=== PATIENT | male | born 1950 | race African-American/Black ===

== ENCOUNTER 2016-04-23 14:21 | Inpatient (IN) ==
[2016-04-23] MEDS ORDERED: 0.9 % Sodium Chloride 1,000 ML IVC ONE (14:27)
--- NOTE | 2016-04-23 14:29 | Emergency Department Note ---
Disposition Clinical Impression: Delirium due to general medical condition, Altered mental status, UTI (urinary tract infection), Renal insufficiency, Hyperkalemia, Anemia, Schizophrenia, Abnormal EKG, Cerebrovascular disease Disposition: Admitted As Inpatient [facility] - General Adult HPI - General Chief complaint: ED Altered Mental Status Stated complaint: r/o CVA Time Seen by Provider: 04/23/16 14:26 Source: patient, EMS Limitations: altered mental status - History of Present Illness HPI Narrative: 66-year-old male [place] in from the [place], there is concern for acute confusion. The patient's home provider reported the patient was acutely confused and he was taken to the [place] for evaluation. The patient was reportedly wandering around the facility, an alteration from his baseline mental status is reported. There is no history of syncope. No history of injury. 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 The patient is unable to give a clear history when asked directly, there is no history of chest pain shortness of breath abdominal pain vomiting or diarrhea. There is no history of rash or fever. No history of seizures fall or trauma. Essentially the patient has been confused and was sent in for further evaluation on the [place] facility. Onset (ago): Just [employer]ICE Pain Scale: 0 - Related Data Home Medications Medication Instructions Recorded Confirmed Acetaminophen [Tylenol] 650 mg PO TID PRN 02/05/16 02/05/16 Alendronate Sodium [Fosamax] 70 mg PO QWEEK 02/05/16 02/05/16 Amlodipine [Norvasc] 5 mg PO DAILY 02/05/16 02/05/16 Aspirin [Lo-Dose Aspirin EC] 81 mg PO DAILY 02/05/16 02/05/16 Atorvastatin [Lipitor] 20 mg PO HS 02/05/16 02/05/16 Benztropine [Cogentin] 1 mg PO BID 02/05/16 02/05/16 Calcium Carb, Citrate/Vit D3 2 tab PO BID 02/05/16 02/05/16 [Calcium + D3 ER Tablet] Cholecalciferol (D-3) [Vitamin D] 1,000 unit PO DAILY 02/05/16 02/05/16 Docusate [Colace] 100 mg PO TID 02/05/16 02/05/16 Haloperidol 20 mg PO TID 02/05/16 02/05/16 Haloperidol Decanoate [Haldol] 50 mg IM QMONTH 02/05/16 02/05/16 Ipratropium/Albuterol Neb [Duoneb] 3 ml IH Q6HR 02/05/16 02/05/16 Latanoprost [Xalatan] 1 drop RIGHT EYE HS 02/05/16 02/05/16 [place] Carbonate 300 mg PO DAILY 02/05/16 02/05/16 Loratadine [Allergy Relief] 10 mg PO DAILY 02/05/16 02/05/16 Magnesium Hydroxide [Milk of 60 ml PO DAILY PRN 02/05/16 02/05/16 Magnesia] Metoprolol XL (24 HR) Succ [Toprol 50 mg PO BID 02/05/16 02/05/16 XL] Omeprazole [PriLOSEC] 20 mg PO BIDAC 02/05/16 02/05/16 Sertraline [Zoloft] 150 mg PO DAILY 02/05/16 02/05/16 Terazosin [Hytrin] 5 mg PO HS 02/05/16 02/05/16 TraZODone 50 mg PO TID 02/05/16 02/05/16 Allergies Allergy/AdvReac Type Severity Reaction Status Date / Time No Known Allergies Allergy Verified 02/05/16 14:27 Limitations: ROS unobtainable due to patients medical condition Past Medical History - Past Medical History Medical history: Reports: GERD, glaucoma, hypertension, osteoporosis, other Surgical history: Reports: cholecystectomy, other (tonsillectomy as a child) Psychiatric history: Reports: bipolar, schizophrenia - Social History Smoking Status: Current every day smoker Smokeless Tobacco Status: No Alcohol use: Reports: none Drug use: Reports: none Physical Exam - General Limitations: altered mental status General appearance: alert, in no apparent distress - Head Head exam: atraumatic, normocephalic, normal inspection - Eye Eye exam: Present: other (Left eye chronic defects right eye unremarkable). Absent: normal appearance, PERRL, EOMI - ENT ENT exam: normal exam, normal oropharynx, mucous membranes moist, normal external ear exam - Neck Neck exam: Present: normal inspection, full ROM, trachea midline. Absent: tenderness - Chest Chest inspection: Present: normal inspection, symmetric chest wall rise. Absent : tenderness - Respiratory Respiratory exam: Present: normal lung sounds bilaterally. Absent: respiratory distress, wheezes, prolonged expiratory phase - Cardiovascular Cardiovascular exam: Present: regular rate, normal rhythm, normal heart sounds - Abdominal Exam Abdominal exam: Present: soft, Non-Tender. Absent: tenderness, distention, guarding, rebound, rigidity, trauma, pulsatile mass - Extremities Exam Extremities exam: Present: normal inspection, full ROM, normal capillary refill. Absent: tenderness, pedal edema, joint swelling, calf tenderness - Expanded Lower Extremity Exam Hip/Pelvis exam: Present: full ROM. Absent: tenderness Upper leg exam: Present: full ROM. Absent: tenderness Knee exam: Present: full ROM. Absent: tenderness Lower leg exam: Present: full ROM. Absent: tenderness, Homans' sign Ankle exam: Present: full ROM. Absent: tenderness Neurovascular/Tendon exam: Absent: motor deficit, sensory deficit, tendon deficit - Back Exam Back exam: Present: normal inspection, full ROM. Absent: tenderness, CVA tenderness (R), CVA tenderness (L), vertebral tenderness - Neurological Exam Neurological exam: Present: alert, oriented X3, CN II-XII intact. Absent: motor sensory deficit - Skin Skin exam: Present: warm, dry, intact, normal color. Absent: rash, cyanosis, diaphoresis, erythema, pallor, mottled Course Vital Signs Temperature 98.3 F 04/23/16 14:22 Pulse Rate 60 04/23/16 14:22 Respiratory Rate 18 04/23/16 14:22 Blood Pressure 132/77 04/23/16 14:22 O2 Sat by Pulse Oximetry 93 L 04/23/16 14:22 Temperature 98.3 F 04/23/16 14:22 Pulse Rate 64 04/23/16 16:15 Respiratory Rate 16 04/23/16 16:15 Blood Pressure 147/80 04/23/16 16:15 O2 Sat by Pulse Oximetry 95 04/23/16 16:15 Oxygen Delivery Oxygen Delivery Room Air Medical Decision Making - MDM Narrative Medical decision making narrative: The patient apparently has a UTI, he is confused and apparently has mental status changes from baseline, Rocephin was given IV. The patient does not appear to be septic. Based on his acute mental status changes in association with infection, I thought it would be appropriate to consult the hospitalist for admission. The patient is currently stable. - Lab Data Lab results reviewed: Yes I reviewed the patient's lab results. Result diagrams: 04/23/16 14:55 04/23/16 14:55 Lab Results 04/23/16 04/23/16 04/23/16 Range/Units 14:30 14:55 14:55 WBC 4.5 (4.3-11.1) K/mcL RBC 3.92 L (4.19-5.50) M/mcL Hgb 11.4 L (12.9-16.9) g/dL Hct 35.2 L (37.5-50.1) % MCV 89.8 (83.0-100.0) fL MCH 29.1 (28.0-33.3) pg MCHC 32.4 (31.6-35.5) g/dL RDW 14.6 H (11.5-14.5) % Plt Count 220 (140-400) K/mcL MPV 10.0 (9.4-12.4) fL Immature Gran % 0.2 (0-4) % Seg Neutrophils % 59.4 % Lymphocytes % 25.3 % Monocytes % 10.0 % Eosinophils % 4.7 % Basophils % 0.4 % Neutrophils # 2.7 (1.6-8.9) K/mcL Lymphocytes # 1.1 (0.6-4.6) K/mcL Monocytes # 0.5 (0.0-1.3) K/mcL Eosinophils # 0.2 (0.0-0.6) K/mcL Basophils # 0.0 (0.0-0.2) K/mcL PT 11.1 (9.4-12.1) Seconds INR 1.0 APTT 26.8 (26.0-36.0) Seconds Sodium (136-145) mEq/L Potassium (3.5-4.5) mEq/L Chloride (98-109) mEq/L Carbon Dioxide (19-29) mEq/L BUN (8-26) mg/dL Creatinine (0.72-1.25) mg/dL Est GFR ( Amer) (> 60) Est GFR (Non-Af Amer) (> 60) BUN/Creatinine Ratio (6-26) Glucose (70-99) mg/dL POC Glucose 111 H (58-89) Calculated Osmolality (280-300) Lactic Acid (0.5-2.2) mmol/L Calcium (8.6-10.8) mg/dL Total Bilirubin (0.2-1.2) mg/dL Direct Bilirubin (0.0-0.5) mg/dL Indirect Bilirubin (0.0-1.2) mg/dL AST (5-34) Units/L ALT (0-55) Units/L Alkaline Phosphatase (38-126) Units/L Ammonia (18-72) mcmol/L Troponin I (0-0.03) ng/mL C-Reactive Protein (Less than 5) mg/L Serum Total Protein (6.0-8.3) g/dL Albumin (3.5-5.0) g/dL Globulin (2.4-3.5) g/dL Albumin/Globulin Ratio (1.1-2.2) TSH (0.350-4.840) mcIU/mL Urine Color (Yellow) Urine Clarity (Clear) Urine pH (5.0-8.0) pH Units Ur Specific [place] (1.010-1.025) Urine Protein (Neg-Trace) mg/dL Urine Glucose (UA) (Normal) mg/dL Urine Ketones (Negative) mg/dL Urine Blood (Negative) Urine Nitrite (Negative) Urine Bilirubin (Negative) Urine Urobilinogen (Normal) mg/dL Ur Leukocyte Esterase (Negative) Urine Microscopic RBC (0-3) per hpf Urine Microscopic WBC (0-3) per hpf Ur Squamous Epith Cells (None-Few) per lpf Urine Bacteria (None-Few) per hpf Hyaline Casts (None-Few) per lpf Ur Culture Indicated? (NO) Urine Opiates Screen (Yuuwaf=768) ng/mL Ur Barbiturates Screen (Eeaxfk=899) ng/mL Ur Phencyclidine Scrn (Cutoff=25) ng/mL Ur Amphetamines Screen (Mxgojc=5808) ng/mL U Benzodiazepines Scrn (Mczzmb=250) ng/mL Urine Cocaine Screen (Cutoff= 300) ng/mL U Marijuana (THC) Screen (Cutoff = 50) ng/mL Ethyl Alcohol (0-10) mg/dL 04/23/16 04/23/16 04/23/16 Range/Units 14:55 14:55 14:55 WBC (4.3-11.1) K/mcL RBC (4.19-5.50) M/mcL Hgb (12.9-16.9) g/dL Hct (37.5-50.1) % MCV (83.0-100.0) fL MCH (28.0-33.3) pg MCHC (31.6-35.5) g/dL RDW (11.5-14.5) % Plt Count (140-400) K/mcL MPV (9.4-12.4) fL Immature Gran % (0-4) % Seg Neutrophils % % Lymphocytes % % Monocytes % % Eosinophils % % Basophils % % Neutrophils # (1.6-8.9) K/mcL Lymphocytes # (0.6-4.6) K/mcL Monocytes # (0.0-1.3) K/mcL Eosinophils # (0.0-0.6) K/mcL Basophils # (0.0-0.2) K/mcL PT (9.4-12.1) Seconds INR APTT (26.0-36.0) Seconds Sodium 141 (136-145) mEq/L Potassium 4.7 H (3.5-4.5) mEq/L Chloride 111 H (98-109) mEq/L Carbon Dioxide 23 (19-29) mEq/L BUN 26 (8-26) mg/dL Creatinine 1.37 H (0.72-1.25) mg/dL Est GFR ( Amer) > 60 (> 60) Est GFR (Non-Af Amer) 52 L (> 60) BUN/Creatinine Ratio 19 (6-26) Glucose 98 (70-99) mg/dL POC Glucose (58-89) Calculated Osmolality 297 (280-300) Lactic Acid (0.5-2.2) mmol/L Calcium 9.9 (8.6-10.8) mg/dL Total Bilirubin 0.3 (0.2-1.2) mg/dL Direct Bilirubin 0.1 (0.0-0.5) mg/dL Indirect Bilirubin 0.2 (0.0-1.2) mg/dL AST 16 (5-34) Units/L ALT 22 (0-55) Units/L Alkaline Phosphatase 109 (38-126) Units/L Ammonia 12 L (18-72) mcmol/L Troponin I 0.01 (0-0.03) ng/mL C-Reactive Protein (Less than 5) mg/L Serum Total Protein 7.3 (6.0-8.3) g/dL Albumin 3.5 (3.5-5.0) g/dL Globulin 3.8 H (2.4-3.5) g/dL Albumin/Globulin Ratio 0.9 L (1.1-2.2) TSH 0.702 (0.350-4.840) mcIU/mL Urine Color (Yellow) Urine Clarity (Clear) Urine pH (5.0-8.0) pH Units Ur Specific [place] (1.010-1.025) Urine Protein (Neg-Trace) mg/dL Urine Glucose (UA) (Normal) mg/dL Urine Ketones (Negative) mg/dL Urine Blood (Negative) Urine Nitrite (Negative) Urine Bilirubin (Negative) Urine Urobilinogen (Normal) mg/dL Ur Leukocyte Esterase (Negative) Urine Microscopic RBC (0-3) per hpf Urine Microscopic WBC (0-3) per hpf Ur Squamous Epith Cells (None-Few) per lpf Urine Bacteria (None-Few) per hpf Hyaline Casts (None-Few) per lpf Ur Culture Indicated? (NO) Urine Opiates Screen (Lynjeg=631) ng/mL Ur Barbiturates Screen (Bhyvyp=579) ng/mL Ur Phencyclidine Scrn (Cutoff=25) ng/mL Ur Amphetamines Screen (Uvbgdy=7379) ng/mL U Benzodiazepines Scrn (Mjxjlj=921) ng/mL Urine Cocaine Screen (Cutoff= 300) ng/mL U Marijuana (THC) Screen (Cutoff = 50) ng/mL Ethyl Alcohol < 10 (0-10) mg/dL 04/23/16 04/23/16 04/23/16 Range/Units 14:55 14:55 15:35 WBC (4.3-11.1) K/mcL RBC (4.19-5.50) M/mcL Hgb (12.9-16.9) g/dL Hct (37.5-50.1) % MCV (83.0-100.0) fL MCH (28.0-33.3) pg MCHC (31.6-35.5) g/dL RDW (11.5-14.5) % Plt Count (140-400) K/mcL MPV (9.4-12.4) fL Immature Gran % (0-4) % Seg Neutrophils % % Lymphocytes % % Monocytes % % Eosinophils % % Basophils % % Neutrophils # (1.6-8.9) K/mcL Lymphocytes # (0.6-4.6) K/mcL Monocytes # (0.0-1.3) K/mcL Eosinophils # (0.0-0.6) K/mcL Basophils # (0.0-0.2) K/mcL PT (9.4-12.1) Seconds INR APTT (26.0-36.0) Seconds Sodium (136-145) mEq/L Potassium (3.5-4.5) mEq/L Chloride (98-109) mEq/L Carbon Dioxide (19-29) mEq/L BUN (8-26) mg/dL Creatinine (0.72-1.25) mg/dL Est GFR ( Amer) (> 60) Est GFR (Non-Af Amer) (> 60) BUN/Creatinine Ratio (6-26) Glucose (70-99) mg/dL POC Glucose (58-89) Calculated Osmolality (280-300) Lactic Acid 0.6 (0.5-2.2) mmol/L Calcium (8.6-10.8) mg/dL Total Bilirubin (0.2-1.2) mg/dL Direct Bilirubin (0.0-0.5) mg/dL Indirect Bilirubin (0.0-1.2) mg/dL AST (5-34) Units/L ALT (0-55) Units/L Alkaline Phosphatase (38-126) Units/L Ammonia (18-72) mcmol/L Troponin I (0-0.03) ng/mL C-Reactive Protein 11 H (Less than 5) mg/L Serum Total Protein (6.0-8.3) g/dL Albumin (3.5-5.0) g/dL Globulin (2.4-3.5) g/dL Albumin/Globulin Ratio (1.1-2.2) TSH (0.350-4.840) mcIU/mL Urine Color Yellow (Yellow) Urine Clarity Cloudy A (Clear) Urine pH 6.0 (5.0-8.0) pH Units Ur Specific [place] 1.013 (1.010-1.025) Urine Protein 30 H (Neg-Trace) mg/dL Urine Glucose (UA) Normal (Normal) mg/dL Urine Ketones Negative (Negative) mg/dL Urine Blood Negative (Negative) Urine Nitrite Negative (Negative) Urine Bilirubin Negative (Negative) Urine Urobilinogen Normal (Normal) mg/dL Ur Leukocyte Esterase Large H (Negative) Urine Microscopic RBC 0-3 (0-3) per hpf Urine Microscopic WBC 50-100 H (0-3) per hpf Ur Squamous Epith Cells Few (None-Few) per lpf Urine Bacteria Moderate H (None-Few) per hpf Hyaline Casts None Seen (None-Few) per lpf Ur Culture Indicated? YES A (NO) Urine Opiates Screen (Oizbzn=056) ng/mL Ur Barbiturates Screen (Jkjxqy=044) ng/mL Ur Phencyclidine Scrn (Cutoff=25) ng/mL Ur Amphetamines Screen (Wjekkq=3355) ng/mL U Benzodiazepines Scrn (Kuftxu=821) ng/mL Urine Cocaine Screen (Cutoff= 300) ng/mL U Marijuana (THC) Screen (Cutoff = 50) ng/mL Ethyl Alcohol (0-10) mg/dL 04/23/16 Range/Units 15:35 WBC (4.3-11.1) K/mcL RBC (4.19-5.50) M/mcL Hgb (12.9-16.9) g/dL Hct (37.5-50.1) % MCV (83.0-100.0) fL MCH (28.0-33.3) pg MCHC (31.6-35.5) g/dL RDW (11.5-14.5) % Plt Count (140-400) K/mcL MPV (9.4-12.4) fL Immature Gran % (0-4) % Seg Neutrophils % % Lymphocytes % % Monocytes % % Eosinophils % % Basophils % % Neutrophils # (1.6-8.9) K/mcL Lymphocytes # (0.6-4.6) K/mcL Monocytes # (0.0-1.3) K/mcL Eosinophils # (0.0-0.6) K/mcL Basophils # (0.0-0.2) K/mcL PT (9.4-12.1) Seconds INR APTT (26.0-36.0) Seconds Sodium (136-145) mEq/L Potassium (3.5-4.5) mEq/L Chloride (98-109) mEq/L Carbon Dioxide (19-29) mEq/L BUN (8-26) mg/dL Creatinine (0.72-1.25) mg/dL Est GFR ( Amer) (> 60) Est GFR (Non-Af Amer) (> 60) BUN/Creatinine Ratio (6-26) Glucose (70-99) mg/dL POC Glucose (58-89) Calculated Osmolality (280-300) Lactic Acid (0.5-2.2) mmol/L Calcium (8.6-10.8) mg/dL Total Bilirubin (0.2-1.2) mg/dL Direct Bilirubin (0.0-0.5) mg/dL Indirect Bilirubin (0.0-1.2) mg/dL AST (5-34) Units/L ALT (0-55) Units/L Alkaline Phosphatase (38-126) Units/L Ammonia (18-72) mcmol/L Troponin I (0-0.03) ng/mL C-Reactive Protein (Less than 5) mg/L Serum Total Protein (6.0-8.3) g/dL Albumin (3.5-5.0) g/dL Globulin (2.4-3.5) g/dL Albumin/Globulin Ratio (1.1-2.2) TSH (0.350-4.840) mcIU/mL Urine Color (Yellow) Urine Clarity (Clear) Urine pH (5.0-8.0) pH Units Ur Specific [place] (1.010-1.025) Urine Protein (Neg-Trace) mg/dL Urine Glucose (UA) (Normal) mg/dL Urine Ketones (Negative) mg/dL Urine Blood (Negative) Urine Nitrite (Negative) Urine Bilirubin (Negative) Urine Urobilinogen (Normal) mg/dL Ur Leukocyte Esterase (Negative) Urine Microscopic RBC (0-3) per hpf Urine Microscopic WBC (0-3) per hpf Ur Squamous Epith Cells (None-Few) per lpf Urine Bacteria (None-Few) per hpf Hyaline Casts (None-Few) per lpf Ur Culture Indicated? (NO) Urine Opiates Screen Negative (Ijbgtr=390) ng/mL Ur Barbiturates Screen Negative (Jzddxd=712) ng/mL Ur Phencyclidine Scrn Negative (Cutoff=25) ng/mL Ur Amphetamines Screen Negative (Rtjznx=8291) ng/mL U Benzodiazepines Scrn Negative (Rpbyay=116) ng/mL Urine Cocaine Screen Negative (Cutoff= 300) ng/mL U Marijuana (THC) Screen Negative (Cutoff = 50) ng/mL Ethyl Alcohol (0-10) mg/dL - Radiology Data Radiology results reviewed: Yes I reviewed the patient's radiology results.
[2016-04-23 15:04] LABS: Basophils % 0.4 %; Eosinophils # 0.2 K/mcL (0.0-0.6); Eosinophils % 4.7 %; Hematocrit 35.2 % (37.5-50.1); Hemoglobin 11.4 g/dL (12.9-16.9); Immature Granulocytes % 0.2 % (0-4); Lymphocytes # 1.1 K/mcL (0.6-4.6); Lymphocytes % 25.3 %; Mean Corpuscular HGB Conc 32.4 g/dL (31.6-35.5); Mean Corpuscular Hemoglobin 29.1 pg (28.0-33.3); Mean Corpuscular Volume 89.8 fL (83.0-100.0); Monocytes # 0.5 K/mcL (0.0-1.3); Neutrophils # 2.7 K/mcL (1.6-8.9); Platelet Count 220 K/mcL (140-400); Red Blood Count 3.92 M/mcL (4.19-5.50); Red Cell Distribution Width 14.6 % (11.5-14.5); Segmented Neutrophils % 59.4 %
[2016-04-23 15:10] LABS: Prothrombin Time 11.1 Seconds (9.4-12.1)
[2016-04-23 15:13] LABS: Activated Partial Thrombo Time 26.8 Seconds (26.0-36.0)
[2016-04-23 15:21] LABS: Alanine Aminotransferase 22 Units/L (0-55); Albumin 3.5 g/dL (3.5-5.0); Albumin/Globulin Ratio 0.9 (1.1-2.2); Alkaline Phosphatase 109 Units/L (38-126); Aspartate Amino Transferase 16 Units/L (5-34); BUN/Creatinine Ratio 19 (6-26); Bilirubin,Direct 0.1 mg/dL (0.0-0.5); Bilirubin,Indirect 0.2 mg/dL (0.0-1.2); Bilirubin,Total 0.3 mg/dL (0.2-1.2); Blood Urea Nitrogen 26 mg/dL (8-26); Calcium 9.9 mg/dL (8.6-10.8); Carbon Dioxide 23 mEq/L (19-29); Chloride 111 mEq/L (98-109); Ethanol < 10 mg/dL (0-10); Globulin 3.8 g/dL (2.4-3.5); Glucose 98 mg/dL (70-99); Osmolality,Calculated 297 (280-300); Potassium 4.7 mEq/L (3.5-4.5); Sodium 141 mEq/L (136-145); Total Protein 7.3 g/dL (6.0-8.3); eGFR For African Americans > 60 (> 60); eGFR For Non-African Americans 52 (> 60)
[2016-04-23 15:41] LABS: Thyroid Stimulating Hormone 0.702 mcIU/mL (0.350-4.840)
[2016-04-23 15:42] LABS: Bilirubin,Urine Negative (Negative); Blood,Urine Negative (Negative); Clarity,Urine Cloudy (Clear); Color,Urine Yellow (Yellow); Glucose,Urine (UA) Normal (Normal); Ketones,Urine Negative (Negative); Leukocyte Esterase,Urine Large (Negative); Nitrite,Urine Negative (Negative); Protein,Urine 30 mg/dL (Neg-Trace); Specific Gravity,Urine 1.013 (1.010-1.025); Urobilinogen,Urine Normal (Normal)
[2016-04-23 15:45] LABS: Bacteria,Urine Moderate per hpf (None-Few); Hyaline Casts,Urine None Seen per lpf (None-Few); RBC,Urine 0-3 per hpf (0-3); Squamous Epithelial Cell,Urine Few per lpf (None-Few); WBC,Urine 50-100 per hpf (0-3)
[2016-04-23 15:47] LABS: Amphetamine Screen,Urine Negative ng/mL (Cutoff=1000); Barbiturate Screen,Urine Negative ng/mL (Cutoff=200); Benzodiazepines Screen,Urine Negative ng/mL (Cutoff=200); Cannabinoid Screen,Urine Negative ng/mL (Cutoff = 50); Cocaine Screen,Urine Negative ng/mL (Cutoff= 300); Opiate Screen,Urine Negative ng/mL (Cutoff=300); Phencyclidine Screen,Urine Negative ng/mL (Cutoff=25)
[2016-04-24] MEDS ORDERED: NON-FORMULARY MEDICATION 1 EACH EACH (Ipratropium/Albuterol Sulfate [Combivent Respimat In IH PRN (02:21)
[2016-04-24] MEDS ORDERED: MOM Conc 10 ML UD.LIQ PO PRN (02:21)
[2016-04-24] MEDS ORDERED: Ondansetron 4 MG/2 ML VIAL IVP PRN (02:36)
[2016-04-24] MEDS ORDERED: Naloxone 0.4 MG/ML INJ IVP PRN (02:36)
[2016-04-24] MEDS ORDERED: Acetaminophen 325 MG TABLET PO PRN (02:36)
[2016-04-24] MEDS ORDERED: Ipratropium 1 PUFF INHALER IH PRN (02:38)
--- NOTE | 2016-04-24 02:42 | Internal Med History&Physical ---
Date of Encounter: 04/24/16 Time of Encounter: 02:00 Assessment and Plan (1) Altered mental status Current visit: Yes Status: Acute Etiology unclear at this time. Patient's UDS was negative. Urinalysis revealed UTI, will treat with Ceftriaxone. Will likely need to obtain more history from patient's family or [place] [facility] staff regarding his altered mental status. Consider consult to psychiatry later if necessary. Qualifiers: Altered mental status type: unspecified Qualified Code(s): R41.82 - Altered mental status, unspecified (2) Schizophrenia Current visit: Yes Status: Chronic Continue home meds: Haloperidol [place] held at this time. Will check lithium levels with morning labs, then resume if indicated. Qualifiers: Schizophrenia type: undifferentiated schizophrenia Qualified Code(s): F20.3 - Undifferentiated schizophrenia (3) REUBEN (acute kidney injury) Current visit: Yes Status: Acute Cr measured at 1.37. 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, bilateral, mild stage (6) BPH (benign prostatic hyperplasia) Current visit: No Status: Chronic Continue home med Terazosin Qualifiers: Prostatic enlargement morphology: nodular Lower urinary tract symptom presence: symptoms present Qualified Code(s): N40.1 - Benign prostatic hyperplasia with lower urinary tract symptoms (7) GERD (gastroesophageal reflux disease) Current visit: No Status: Chronic Continue Home med Prilosec Qualifiers: Esophagitis presence: without esophagitis Qualified Code(s): K21.9 - Gastro -esophageal reflux disease without esophagitis (8) UTI (urinary tract infection) Current visit: Yes Status: Acute urinalysis showed presence of bacteria. Urine culture pending. Ceftriaxone. Change antibiotic if indicated after urine culture sensitivity results. Qualifiers: Urinary tract infection type: site unspecified Hematuria presence: without hematuria Qualified Code(s): N39.0 - Urinary tract infection, site not specified (9) DVT prophylaxis Current visit: Yes Status: Acute Heparin Sq Q8HR Internal Medicine - H&P: HPI Chief complaint: altered mental status Admitted From: Emergency Dept Plans for Post Hospital Care: Transfer Other ([facility] [facility]) History of present illness: Mr. Rosales is a 66 year old male with PMHx of Schizophrenia, HTN, GERD, blindness in left eye, BPH, Schizophrenia, iron deficiency anemia, glaucoma. He came to the ED from a [place] [facility]. Per nursing stafff, patient is a very poor historian. He was asleep upon examination. After being aroused, he would fall back asleep upon further questioning. Per records from [facility], patient had a change in behavior between 8:30am-12pm on 04/23/16. Of note, patient had recently lost a roommate on March 18, and patient had this roommate for about 25 years. At noon on 04/23/16, before breakfast, patient standing at the bottom of the staircase confused with shuffling gait. During lunch he had to be hand fed by staff members because he couldn't get food into his mouth due to jerking and twitching of his hands. [facility] was confused [facility] No history could be obtained from the patient. Past Med Surg Social Fam HX - Past Medical History Medical history: GERD, glaucoma, hypertension, osteoporosis, other Psychiatric history: bipolar, schizophrenia - Past Surgical History Surgical History: cholecystectomy, other - Social History Smoking Status: Current every day smoker Smokeless Tobacco Status: No Alcohol use: none Drug use: none Internal Medicine - H&P: Meds Acetaminophen [Tylenol] 650 mg PO TID PRN 02/05/16 [History] Alendronate Sodium [Fosamax] 70 mg PO QWEEK 02/05/16 [History] Amlodipine [Norvasc] 5 mg PO DAILY 02/05/16 [History] Aspirin [Lo-Dose Aspirin EC] 81 mg PO DAILY 02/05/16 [History] Atorvastatin [Lipitor] 20 mg PO HS 02/05/16 [History] Benztropine [Cogentin] 1 mg PO BID 02/05/16 [History] Calcium Carb, Citrate/Vit D3 [Calcium + D3 ER Tablet] 2 tab PO BID 02/05/16 [ History] Docusate [Colace] 100 mg PO TID 02/05/16 [History] Haloperidol 20 mg PO TID 02/05/16 [History] Haloperidol Decanoate [Haldol] 50 mg IM QMONTH 02/05/16 [History] Ipratropium/Albuterol Neb [Duoneb] 3 ml IH Q6HR 02/05/16 [History] Latanoprost [Xalatan] 1 drop RIGHT EYE HS 02/05/16 [History] [place] Carbonate 300 mg PO DAILY 02/05/16 [History] Magnesium Hydroxide [Milk of Magnesia] 60 ml PO DAILY PRN 02/05/16 [History] Metoprolol XL (24 HR) Succ [Toprol XL] 50 mg PO BID 02/05/16 [History] Omeprazole [PriLOSEC] 20 mg PO BIDAC 02/05/16 [History] Sertraline [Zoloft] 150 mg PO DAILY 02/05/16 [History] Terazosin [Hytrin] 5 mg PO HS 02/05/16 [History] TraZODone 50 mg PO TID 02/05/16 [History] Ipratropium/Albuterol Sulfate [Combivent Respimat Inhal [place]] 1 puff IH Q6H PRN 04/23/16 [History] Allergies No Known Allergies Allergy (Verified 02/05/16 14:27) ROS unobtainable: due to mental status All Systems PM: A 10-system review of systems was performed and is negative for pertinent findings except as documented above in the HPI. - Constitutional Vitals: Temp Pulse Resp BP Pulse Ox 98.1 F 69 18 132/77 95 04/23/16 23:57 04/23/16 23:57 04/23/16 23:57 04/23/16 23:57 04/23/16 23:57 Exam: patient was asleep and drowsy. He would wake up upon arousal, but would immediately fall back asleep without answering questions. - Head Head exam: Present: atraumatic, normal inspection, normocephalic - Respiratory Respiratory exam: Present: CTAB - Cardiovascular Cardiovascular exam: Present: RRR - Extremities Exam Extremities exam: Absent: cyanotic, pedal edema - Neurological Exam Additional comments: unable to do neuro exam, patient was asleep. - Skin Skin exam: Absent: abrasion, cyanosis, diaphoretic Internal Med - H&P Results - Labs CBC & Chem 7: 04/24/16 04:26 04/24/16 04:26
[2016-04-24] MEDS: Ipratropium/Albuterol Neb 3 ML IH SCH ×4 (03:58→22:25)
[2016-04-24 04:43] LABS: Basophils % 0.8 %; Eosinophils # 0.2 K/mcL (0.0-0.6); Eosinophils % 4.7 %; Hemoglobin 10.6 g/dL (12.9-16.9); Immature Granulocytes % 0.2 % (0-4); Lymphocytes # 1.6 K/mcL (0.6-4.6); Lymphocytes % 31.6 %; Mean Corpuscular HGB Conc 32.1 g/dL (31.6-35.5); Mean Corpuscular Hemoglobin 28.5 pg (28.0-33.3); Mean Corpuscular Volume 88.7 fL (83.0-100.0); Mean Platelet Volume 10.6 fL (9.4-12.4); Monocytes # 0.4 K/mcL (0.0-1.3); Monocytes % 7.5 %; Neutrophils # 2.7 K/mcL (1.6-8.9); Platelet Count 223 K/mcL (140-400); Red Blood Count 3.72 M/mcL (4.19-5.50); Red Cell Distribution Width 14.5 % (11.5-14.5); Segmented Neutrophils % 55.2 %
[2016-04-24 05:16] LABS: BUN/Creatinine Ratio 18 (6-26); Blood Urea Nitrogen 24 mg/dL (8-26); Calcium 9.4 mg/dL (8.6-10.8); Carbon Dioxide 21 mEq/L (19-29); Chloride 113 mEq/L (98-109); Glucose 127 mg/dL (70-99); Osmolality,Calculated 298 (280-300); Potassium 4.1 mEq/L (3.5-4.5); Sodium 141 mEq/L (136-145); eGFR For African Americans > 60 (> 60); eGFR For Non-African Americans 55 (> 60)
[2016-04-24] MEDS: 0.9 % Sodium Chloride 1,000 ML IVC SCH ×2 (06:10→21:47)
[2016-04-24] MEDS: *HR* Heparin 5,000 UNIT/ML VIAL SQ SCH ×3 (06:24→22:01)
[2016-04-24] MEDS ORDERED: Sulfamethoxazole/Trimeth DS 1 EACH TABLET PO SCH (09:00)
[2016-04-24] MEDS: Aspirin Enteric Coated 81 MG Tablet PO SCH (10:55)
[2016-04-24] MEDS: traZODone 50 MG TABLET PO SCH ×3 (10:55→21:57)
[2016-04-24] MEDS: Metoprolol XL (24 HR) Succ 50 MG TAB.ER.24H PO SCH ×2 (10:55→21:59)
[2016-04-24] MEDS: amLODIPine 5 MG TABLET PO SCH (10:55)
[2016-04-24] MEDS: Calcium + D3 PO SCH ×2 (10:56→22:01)
--- NOTE | 2016-04-24 15:43 | Internal Med Progress Note ---
Date of Encounter: 04/24/16 Time of Encounter: 15:41 - Assessment and plan (1) REUBEN (acute kidney injury) Current Visit: Yes Status: Acute Assessment and plan: will continue to monitor. GFR>60 at this time avoid nephrotoxins (2) Altered mental status Current Visit: Yes Status: Acute Assessment and plan: appears to be at baseline. may be 2/2 UTI when he [resented yesterday with confusion, will follow urine cx. Head CT is negative for any hematoma or infarct. Qualifiers: Altered mental status type: somnolence Qualified Code(s): R40.0 - Somnolence (3) UTI (urinary tract infection) Current Visit: Yes Status: Acute Assessment and plan: zhane continue IV ceftriaxone for now, no leucocytosis or fever. follow urine cx results. Qualifiers: Urinary tract infection type: site unspecified Hematuria presence: without hematuria Qualified Code(s): N39.0 - Urinary tract infection, site not specified (4) Schizophrenia Current Visit: Yes Status: Chronic Assessment and plan: lithium was held yesterday, levels are low, will restart back. Qualifiers: Schizophrenia type: undifferentiated schizophrenia Qualified Code(s): F20.3 - Undifferentiated schizophrenia - Time Spent With Patient 25 - 35 minutes - Subjective Interval history: seen at the bedside, says that his left arm feels somewhat numb, otherwise denies any complaints. Does not sound confused at the time of my assessment. Denies any other complaints. - Constitutional Vitals: Temp Pulse Resp BP Pulse Ox 97.4 F L 68 16 136/81 98 04/24/16 15:19 04/24/16 15:19 04/24/16 15:19 04/24/16 15:19 04/24/16 15:19 General appearance: Present: A&O X 3, no acute distress Exam: - Head Head exam: Present: atraumatic, normal inspection, normocephalic - Respiratory Respiratory exam: Present: CTAB - Cardiovascular Cardiovascular exam: Present: RRR - Extremities Exam Extremities exam: Absent: cyanotic, pedal edema - Neurological Exam no focal neuro defecits. - Skin Skin exam: Absent: abrasion, cyanosis, diaphoretic Internal Medicine: Result - Labs CBC & Chem 7: 04/24/16 04:26 04/24/16 04:26 Labs: Short CBC 04/24/16 Range/Units 04:26 WBC 4.9 (4.3-11.1) K/mcL Hgb 10.6 L (12.9-16.9) g/dL Hct 33.0 L (37.5-50.1) % Plt Count 223 (140-400) K/mcL Neutrophils # 2.7 (1.6-8.9) K/mcL BMP 04/24/16 04:26 Sodium 141 Potassium 4.1 Chloride 113 H Carbon Dioxide 21 BUN 24 Creatinine 1.30 H Glucose 127 H Calcium 9.4 - ABG Interpretation ABG results: PT/INR, D-dimer PT 11.1 Seconds (9.4-12.1) 04/23/16 14:55 Consult Discharge Plan - Plan
--- NOTE | 2016-04-24 18:36 | Electrocardiograph Report ---
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
[2016-04-24] MEDS: Latanoprost 2.5 ML BOTTLE RIGHT EYE SCH (22:01)
[2016-04-25] MEDS: Ipratropium/Albuterol Neb 3 ML IH SCH ×4 (03:35→22:34)
[2016-04-25] MEDS: *HR* Heparin 5,000 UNIT/ML VIAL SQ SCH ×3 (06:25→21:59)
[2016-04-25 08:33] LABS: Basophils % 0.9 %; Eosinophils # 0.2 K/mcL (0.0-0.6); Eosinophils % 4.2 %; Hematocrit 32.8 % (37.5-50.1); Hemoglobin 10.5 g/dL (12.9-16.9); Immature Granulocytes % 0.2 % (0-4); Lymphocytes # 1.5 K/mcL (0.6-4.6); Lymphocytes % 33.6 %; Mean Corpuscular Hemoglobin 28.8 pg (28.0-33.3); Mean Corpuscular Volume 89.9 fL (83.0-100.0); Mean Platelet Volume 10.4 fL (9.4-12.4); Monocytes # 0.5 K/mcL (0.0-1.3); Monocytes % 10.5 %; Neutrophils # 2.3 K/mcL (1.6-8.9); Platelet Count 219 K/mcL (140-400); Red Blood Count 3.65 M/mcL (4.19-5.50); Red Cell Distribution Width 14.2 % (11.5-14.5); Segmented Neutrophils % 50.6 %
[2016-04-25 08:45] LABS: BUN/Creatinine Ratio 11 (6-26); Blood Urea Nitrogen 14 mg/dL (8-26); Carbon Dioxide 21 mEq/L (19-29); Chloride 112 mEq/L (98-109); Potassium 4.1 mEq/L (3.5-4.5); Sodium 143 mEq/L (136-145)
[2016-04-25 08:46] LABS: Calcium 9.2 mg/dL (8.6-10.8); Glucose 122 mg/dL (70-99); Osmolality,Calculated 298 (280-300); eGFR For African Americans > 60 (> 60); eGFR For Non-African Americans 59 (> 60)
--- NOTE | 2016-04-25 09:20 | Discharge Summary ---
Date of Encounter: 04/25/16 Time of Encounter: 09:18 - Discharge Diagnosis (1) REBUEN (acute kidney injury) Priority: Primary Status: Acute (2) Altered mental status Priority: Primary Status: Acute Qualifiers: Altered mental status type: somnolence Qualified Code(s): R40.0 - Somnolence (3) UTI (urinary tract infection) Priority: Primary Status: Acute Qualifiers: Urinary tract infection type: site unspecified Hematuria presence: without hematuria Qualified Code(s): N39.0 - Urinary tract infection, site not specified (4) Schizophrenia Priority: Secondary Status: Chronic Qualifiers: Schizophrenia type: undifferentiated schizophrenia Qualified Code(s): F20.3 - Undifferentiated schizophrenia - Discharge Medications Prescriptions: Levofloxacin 500 mg PO DAILY #5 tablet Home Medications: Acetaminophen [Tylenol] 650 mg PO TID PRN 02/05/16 [History] Alendronate Sodium [Fosamax] 70 mg PO QWEEK 02/05/16 [History] Amlodipine [Norvasc] 5 mg PO DAILY 02/05/16 [History] Aspirin [Lo-Dose Aspirin EC] 81 mg PO DAILY 02/05/16 [History] Atorvastatin [Lipitor] 20 mg PO HS 02/05/16 [History] Benztropine [Cogentin] 1 mg PO BID 02/05/16 [History] Calcium Carb, Citrate/Vit D3 [Calcium + D3 ER Tablet] 2 tab PO BID 02/05/16 [ History] Docusate [Colace] 100 mg PO TID 02/05/16 [History] Haloperidol 20 mg PO TID 02/05/16 [History] Haloperidol Decanoate [Haldol] 50 mg IM QMONTH 02/05/16 [History] Ipratropium/Albuterol Neb [Duoneb] 3 ml IH Q6HR 02/05/16 [History] Latanoprost [Xalatan] 1 drop RIGHT EYE HS 02/05/16 [History] [place] Carbonate 300 mg PO DAILY 02/05/16 [History] Magnesium Hydroxide [Milk of Magnesia] 60 ml PO DAILY PRN 02/05/16 [History] Metoprolol XL (24 HR) Succ [Toprol Xl] 50 mg PO BID 02/05/16 [History] Omeprazole [PriLOSEC] 20 mg PO BIDAC 02/05/16 [History] Sertraline [Zoloft] 150 mg PO DAILY 02/05/16 [History] Terazosin [Hytrin] 5 mg PO HS 02/05/16 [History] TraZODone 50 mg PO TID 02/05/16 [History] Ipratropium/Albuterol Sulfate [Combivent Respimat Inhal [place]] 1 puff IH Q6H PRN 04/23/16 [History] Levofloxacin 500 mg PO DAILY #5 tablet 04/25/16 [Rx] Allergies/Adverse Reactions: Allergies No Known Allergies Allergy (Verified 02/05/16 14:27) Date of admission: 04/23/16 18:27 [facility] Consults: 04/23/16 19:35 Consult to Machine Zipper Trimmer [CONS] Routine Reason for Consult: discharge planning, needs Discharging clinician: Gavin Bardales Anticipated date of discharge: 04/25/16 - Patient Status Disposition: Transfer SNF Condition: Fair Functional capacity at discharge: uses cane/walker Overall status at discharge: patient is back to baseline - Discharge Instructions Instructions: Urinary Tract Infection in Men (DC) [facility] With: [facility] [Primary Care Provider[facility] - Forms: ED Satisfaction Letter - Diet and Activity Activity: as per physical therapy Diet: advance to your usual diet Interval History: Mr. Rosales is a 66 year old male with PMHx of Schizophrenia, HTN, GERD, blindness in left eye, BPH, Schizophrenia, iron deficiency anemia, glaucoma. He came to the ED from a correction. Per nursing stafff, patient is a very poor historian. He was asleep upon examination. After being aroused, he would fall back asleep upon further questioning. Per records from correction, patient had a change in behavior between 8:30am-12pm on 04/23/16. Of note, patient had recently lost a roommate on March 18, and patient had this roommate for about 25 years. At noon on 04/23/16, before breakfast, patient standing at the bottom of the staircase confused with shuffling gait. During lunch he had to be hand fed by staff members because he couldn't get food into his mouth due to jerking and twitching of his hands. The patient was confused and [facility]. No history could be obtained from the patient. AT ED,Patient's UDS was negative. CT head was done that was negative for any ischemia or hemorrhage. Urinalysis revealed UTI, was treated with Ceftriaxone. he remained hemodynamically stable and afebrile. he seems to be at his baseline at the hospital, no abnormal behavior. he is being dc today with oral antibiotics for UTI. Hospital course: Mr. Rosales is a 66 year old male Time spent discussing smoking cessation with patient: more than 10 minutes - Time Spent with Patient Total time spent providing and/or coordinating discharge services: Greater than 30 minutes - Constitutional Vitals: Temp Pulse Resp BP Pulse Ox 97.5 F L 87 16 147/83 94 L 04/25/16 07:22 04/25/16 07:22 04/25/16 07:22 04/25/16 07:22 04/25/16 07:22 General appearance: Present: A&O X 3, no acute distress Exam: - Head Head exam: Present: atraumatic, normal inspection, normocephalic - Respiratory Respiratory exam: Present: CTAB - Cardiovascular Cardiovascular exam: Present: RRR - Extremities Exam Extremities exam: Absent: cyanotic, pedal edema - Neurological Exam Additional comments: no focal neuro defecits, moving all his extremities. - Skin Skin exam: Absent: abrasion, cyanosis, diaphoretic
[2016-04-25] MEDS: amLODIPine 5 MG TABLET PO SCH (09:33)
[2016-04-25] MEDS: Aspirin Enteric Coated 81 MG Tablet PO SCH (09:33)
[2016-04-25] MEDS: traZODone 50 MG TABLET PO SCH ×3 (09:37→21:50)
[2016-04-25] MEDS: Metoprolol XL (24 HR) Succ 50 MG TAB.ER.24H PO SCH ×2 (09:37→21:51)
[2016-04-25] MEDS: Calcium + D3 PO SCH ×2 (09:38→21:53)
[2016-04-25] MEDS: Latanoprost 2.5 ML BOTTLE RIGHT EYE SCH (21:54)
[2016-04-26] MEDS: Ipratropium/Albuterol Neb 3 ML IH SCH ×4 (03:28→22:37)
[2016-04-26 04:33] LABS: Basophils % 0.9 %; Eosinophils # 0.2 K/mcL (0.0-0.6); Eosinophils % 4.3 %; Hematocrit 30.2 % (37.5-50.1); Hemoglobin 9.9 g/dL (12.9-16.9); Immature Granulocytes % 0.2 % (0-4); Lymphocytes # 1.7 K/mcL (0.6-4.6); Lymphocytes % 36.5 %; Mean Corpuscular HGB Conc 32.8 g/dL (31.6-35.5); Mean Corpuscular Hemoglobin 28.9 pg (28.0-33.3); Mean Corpuscular Volume 88.3 fL (83.0-100.0); Mean Platelet Volume 10.2 fL (9.4-12.4); Monocytes # 0.5 K/mcL (0.0-1.3); Neutrophils # 2.3 K/mcL (1.6-8.9); Platelet Count 223 K/mcL (140-400); Red Blood Count 3.42 M/mcL (4.19-5.50); Red Cell Distribution Width 14.1 % (11.5-14.5); Segmented Neutrophils % 48.1 %
[2016-04-26 04:43] LABS: BUN/Creatinine Ratio 10 (6-26); Blood Urea Nitrogen 12 mg/dL (8-26); Calcium 9.2 mg/dL (8.6-10.8); Carbon Dioxide 24 mEq/L (19-29); Chloride 111 mEq/L (98-109); Glucose 103 mg/dL (70-99); Osmolality,Calculated 292 (280-300); Potassium 4.2 mEq/L (3.5-4.5); Sodium 141 mEq/L (136-145); eGFR For African Americans > 60 (> 60); eGFR For Non-African Americans 59 (> 60)
[2016-04-26] MEDS: *HR* Heparin 5,000 UNIT/ML VIAL SQ SCH ×3 (05:39→21:54)
[2016-04-26] MEDS: Metoprolol XL (24 HR) Succ 50 MG TAB.ER.24H PO SCH ×2 (09:35→21:54)
[2016-04-26] MEDS: traZODone 50 MG TABLET PO SCH ×3 (09:35→21:53)
[2016-04-26] MEDS: amLODIPine 5 MG TABLET PO SCH (09:36)
[2016-04-26] MEDS: Aspirin Enteric Coated 81 MG Tablet PO SCH (09:36)
[2016-04-26] MEDS: Calcium + D3 PO SCH ×2 (09:36→22:58)
[2016-04-26] MEDS: Latanoprost 2.5 ML BOTTLE RIGHT EYE SCH (22:58)
[2016-04-27] MEDS: Ipratropium/Albuterol Neb 3 ML IH SCH ×2 (04:21→10:53)
[2016-04-27] MEDS: *HR* Heparin 5,000 UNIT/ML VIAL SQ SCH (05:54)
[2016-04-27] MEDS: Aspirin Enteric Coated 81 MG Tablet PO SCH (09:17)
[2016-04-27] MEDS: traZODone 50 MG TABLET PO SCH (09:17)
[2016-04-27] MEDS: Metoprolol XL (24 HR) Succ 50 MG TAB.ER.24H PO SCH (09:17)
[2016-04-27] MEDS: amLODIPine 5 MG TABLET PO SCH (09:18)
[2016-04-27] MEDS: Calcium + D3 PO SCH (09:18)
[2016-04-27 10:58] VITALS: BP 135/72
--- NOTE | 2016-04-27 12:34 | Physician Discharge Referral ---
ExtendedCare Referral Info Transfer To: F Provider in Charge: anne marie thomas Institutional Level of Care: Intermediate - MR - Diagnosis (1) REUBEN (acute kidney injury) Status: Acute (2) Altered mental status Status: Acute (3) UTI (urinary tract infection) Status: Acute (4) Schizophrenia Status: Chronic - Transfer Medications Prescriptions: Haloperidol [Haldol] 20 mg PO TID #90 tablet Levofloxacin 500 mg PO DAILY #5 tablet Home Medications: Acetaminophen [Tylenol] 650 mg PO TID PRN 02/05/16 [History] Alendronate Sodium [Fosamax] 70 mg PO QWEEK 02/05/16 [History] Amlodipine [Norvasc] 5 mg PO DAILY 02/05/16 [History] Aspirin [Lo-Dose Aspirin EC] 81 mg PO DAILY 02/05/16 [History] Atorvastatin [Lipitor] 20 mg PO HS 02/05/16 [History] Benztropine [Cogentin] 1 mg PO BID 02/05/16 [History] Calcium Carb, Citrate/Vit D3 [Calcium + D3 ER Tablet] 2 tab PO BID 02/05/16 [ History] Docusate [Colace] 100 mg PO TID 02/05/16 [History] Haloperidol 20 mg PO TID 02/05/16 [History] Haloperidol Decanoate [Haldol] 50 mg IM QMONTH 02/05/16 [History] Ipratropium/Albuterol Neb [Duoneb] 3 ml IH Q6HR 02/05/16 [History] Latanoprost [Xalatan] 1 drop RIGHT EYE HS 02/05/16 [History] [place] Carbonate 300 mg PO DAILY 02/05/16 [History] Magnesium Hydroxide [Milk of Magnesia] 60 ml PO DAILY PRN 02/05/16 [History] Metoprolol XL (24 HR) Succ [Toprol Xl] 50 mg PO BID 02/05/16 [History] Omeprazole [PriLOSEC] 20 mg PO BIDAC 02/05/16 [History] Sertraline [Zoloft] 150 mg PO DAILY 02/05/16 [History] Terazosin [Hytrin] 5 mg PO HS 02/05/16 [History] TraZODone 50 mg PO TID 02/05/16 [History] Ipratropium/Albuterol Sulfate [Combivent Respimat Inhal [place]] 1 puff IH Q6H PRN 04/23/16 [History] Levofloxacin 500 mg PO DAILY #5 tablet 04/25/16 [Rx] Haloperidol [Haldol] 20 mg PO TID #90 tablet 04/27/16 [Rx] Allergies/Adverse Reactions: Allergies No Known Allergies Allergy (Verified 02/05/16 14:27) - Respiratory Orders Smoking Cessation: Smoking cessation has been advised. For more information, call the [place] Tobacco Quit Line at 7-716-NILS-NOW. - Mobility Orders Ambulate - Rehabiliation Orders Rehab Potential: Fair Rehab Orders: Evaluation for Physical Therapy, Evaluation for Occupational Therapy - Diet Orders Mechanical Soft CERTIFICATION: I certify that the transfer of the above named patient to an Extended Care Facility is necessary for the continuing treatment of the diagnosis listed. The above information is true and accurate reflection of patient's current condition. Confidential - Redisclosure prohibited without a patient's written consent.
--- NOTE | 2016-04-27 17:30 | Event Note ---
Date of Encounter: 04/27/16 Time of Encounter: 17:29 patient was waiting for placement , is approved to leave to [facility] today. he is being discharged in stable condition.
--- NOTE | 2016-04-28 09:30 | Consult Note ---
Date of Encounter: 04/24/16 Time of Encounter: 15:00 Assessment & Recommendation (1) Altered mental status Status: Acute Assessment & Recommendation: impression: Delirium due to multiple etiologies. Schizophrenia by history Recommendation: 1. Medical management of delirium 2. Referral to [facility] for psychiatric follow-up. Qualifiers: Altered mental status type: delirium Qualified Code(s): R41.0 - Disorientation, unspecified History of Present Illness Requesting Physician: Gavin Bardales Reason for consult: altered mental status History of present illness: Mr. Rosales is a 66 year old male admitted to the hospital from half-way for change in mental status. Patient was found to have urinary tract infection. Psychiatry was consulted to evaluate its change in mental status. Patient has a history of schizophrenia and medical history as per records. On interview patient was awake he was slightly hard of hearing, speech was circumstantial to tell me that he is a when I asked him why he is in the hospital he said "" I fell at home. Patient was a poor historian and was not able to answer history questions he was able to tell me that he was seeing a psychiatrist at the [facility] and taking medication but could not remember the name of the medication. CC: Gavin Bardales Past Med Surg Social Fam HX - Past Medical History Medical history: GERD, glaucoma, hypertension, osteoporosis, other - Past Psychiatric History Psychiatric history: Reports: other (unknown) - Past Surgical History Surgical History: cholecystectomy, other - Social History Smoking Status: Current every day smoker Smokeless Tobacco Status: No Alcohol use: none Drug use: none Medications & Allergies Acetaminophen [Tylenol] 650 mg PO TID PRN 02/05/16 [History] Alendronate Sodium [Fosamax] 70 mg PO QWEEK 02/05/16 [History] Amlodipine [Norvasc] 5 mg PO DAILY 02/05/16 [History] Aspirin [Lo-Dose Aspirin EC] 81 mg PO DAILY 02/05/16 [History] Atorvastatin [Lipitor] 20 mg PO HS 02/05/16 [History] Benztropine [Cogentin] 1 mg PO BID 02/05/16 [History] Calcium Carb, Citrate/Vit D3 [Calcium + D3 ER Tablet] 2 tab PO BID 02/05/16 [ History] Docusate [Colace] 100 mg PO TID 02/05/16 [History] Haloperidol 20 mg PO TID 02/05/16 [History] Haloperidol Decanoate [Haldol] 50 mg IM QMONTH 02/05/16 [History] Ipratropium/Albuterol Neb [Duoneb] 3 ml IH Q6HR 02/05/16 [History] Latanoprost [Xalatan] 1 drop RIGHT EYE HS 02/05/16 [History] [place] Carbonate 300 mg PO DAILY 02/05/16 [History] Magnesium Hydroxide [Milk of Magnesia] 60 ml PO DAILY PRN 02/05/16 [History] Metoprolol XL (24 HR) Succ [Toprol Xl] 50 mg PO BID 02/05/16 [History] Omeprazole [PriLOSEC] 20 mg PO BIDAC 02/05/16 [History] Sertraline [Zoloft] 150 mg PO DAILY 02/05/16 [History] Terazosin [Hytrin] 5 mg PO HS 02/05/16 [History] TraZODone 50 mg PO TID 02/05/16 [History] Ipratropium/Albuterol Sulfate [Combivent Respimat Inhal [place]] 1 puff IH Q6H PRN 04/23/16 [History] Levofloxacin 500 mg PO DAILY #5 tablet 04/25/16 [Rx] Haloperidol [Haldol] 20 mg PO TID #90 tablet 04/27/16 [Rx] Allergies No Known Allergies Allergy (Verified 02/05/16 14:27) Review of Systems Psychiatric: Reports: confusion Mental Status Exam Patient orientation: Yes Person, Yes Place Level of alertness: Sedated Patient appearance: Unkempt, Disheveled Behavior: calm Psychomotor activity: Slowed Eye contact: No Eye Contact Mood description: Anxious Affect description: blunted, flat Speech pattern: Slurred, Rambling Speech volume: Loud Thought process: Tangential, Disorganized Thought content: No Suicidal ideation, No Homicidal ideation, No Overt delusions Perceptual disturbances: No Auditory hallucinations, No Visual hallucinations Attention span: Unable to Focus Memory description: Recent Impaired, Remote Impaired Patient reliability: Not Reliable Historian Intelligence estimate: Below Average Judgment: Limited Insight: Partial Results - Vital Signs Vital signs: Temp Pulse Resp BP Pulse Ox 98.2 F 109 15 135/72 99 04/27/16 10:57 04/27/16 10:57 04/27/16 10:57 04/27/16 10:57 04/27/16 10:57 - Labs Labs: Laboratory Last Values WBC 4.7 K/mcL (4.3-11.1) 04/26/16 04:12 RBC 3.42 M/mcL (4.19-5.50) L 04/26/16 04:12 Hgb 9.9 g/dL (12.9-16.9) L 04/26/16 04:12 Hct 30.2 % (37.5-50.1) L 04/26/16 04:12 MCV 88.3 fL (83.0-100.0) 04/26/16 04:12 MCH 28.9 pg (28.0-33.3) 04/26/16 04:12 MCHC 32.8 g/dL (31.6-35.5) 04/26/16 04:12 RDW 14.1 % (11.5-14.5) 04/26/16 04:12 Plt Count 223 K/mcL (140-400) 04/26/16 04:12 MPV 10.2 fL (9.4-12.4) 04/26/16 04:12 Immature Gran % 0.2 % (0-4) 04/26/16 04:12 Seg Neutrophils % 48.1 % 04/26/16 04:12 Lymphocytes % 36.5 % 04/26/16 04:12 Monocytes % 10.0 % 04/26/16 04:12 Eosinophils % 4.3 % 04/26/16 04:12 Basophils % 0.9 % 04/26/16 04:12 Neutrophils # 2.3 K/mcL (1.6-8.9) 04/26/16 04:12 Lymphocytes # 1.7 K/mcL (0.6-4.6) 04/26/16 04:12 Monocytes # 0.5 K/mcL (0.0-1.3) 04/26/16 04:12 Eosinophils # 0.2 K/mcL (0.0-0.6) 04/26/16 04:12 Basophils # 0.0 K/mcL (0.0-0.2) 04/26/16 04:12 PT 11.1 Seconds (9.4-12.1) 04/23/16 14:55 INR 1.0 04/23/16 14:55 APTT 26.8 Seconds (26.0-36.0) 04/23/16 14:55 Sodium 141 mEq/L (136-145) 04/26/16 04:12 Potassium 4.2 mEq/L (3.5-4.5) 04/26/16 04:12 Chloride 111 mEq/L (98-109) H 04/26/16 04:12 Carbon Dioxide 24 mEq/L (19-29) 04/26/16 04:12 BUN 12 mg/dL (8-26) 04/26/16 04:12 Creatinine 1.23 mg/dL (0.72-1.25) 04/26/16 04:12 Est GFR ( Amer) > 60 (> 60) 04/26/16 04:12 Est GFR (Non-Af Amer) 59 (> 60) L 04/26/16 04:12 BUN/Creatinine Ratio 10 (6-26) 04/26/16 04:12 Glucose 103 mg/dL (70-99) H 04/26/16 04:12 POC Glucose 111 (58-89) H 04/23/16 14:30 Calculated Osmolality 292 (280-300) 04/26/16 04:12 Lactic Acid 0.6 mmol/L (0.5-2.2) 04/23/16 14:55 Calcium 9.2 mg/dL (8.6-10.8) 04/26/16 04:12 Total Bilirubin 0.3 mg/dL (0.2-1.2) 04/23/16 14:55 Direct Bilirubin 0.1 mg/dL (0.0-0.5) 04/23/16 14:55 Indirect Bilirubin 0.2 mg/dL (0.0-1.2) 04/23/16 14:55 AST 16 Units/L (5-34) 04/23/16 14:55 ALT 22 Units/L (0-55) 04/23/16 14:55 Alkaline Phosphatase 109 Units/L (38-126) 04/23/16 14:55 Ammonia 12 mcmol/L (18-72) L 04/23/16 14:55 Troponin I 0.01 ng/mL (0-0.03) 04/23/16 14:55 C-Reactive Protein 11 mg/L (Less than 5) H 04/23/16 14:55 Serum Total Protein 7.3 g/dL (6.0-8.3) 04/23/16 14:55 Albumin 3.5 g/dL (3.5-5.0) 04/23/16 14:55 Globulin 3.8 g/dL (2.4-3.5) H 04/23/16 14:55 Albumin/Globulin Ratio 0.9 (1.1-2.2) L 04/23/16 14:55 TSH 0.702 mcIU/mL (0.350-4.840) 04/23/16 14:55 Urine Color Yellow (Yellow) 04/23/16 15:35 Urine Clarity Cloudy (Clear) A 04/23/16 15:35 Urine pH 6.0 pH Units (5.0-8.0) 04/23/16 15:35 Ur Specific [place] 1.013 (1.010-1.025) 04/23/16 15:35 Urine Protein 30 mg/dL (Neg-Trace) H 04/23/16 15:35 Urine Glucose (UA) Normal mg/dL (Normal) 04/23/16 15:35 Urine Ketones Negative mg/dL (Negative) 04/23/16 15:35 Urine Blood Negative (Negative) 04/23/16 15:35 Urine Nitrite Negative (Negative) 04/23/16 15:35 Urine Bilirubin Negative (Negative) 04/23/16 15:35 Urine Urobilinogen Normal mg/dL (Normal) 04/23/16 15:35 Ur Leukocyte Esterase Large (Negative) H 04/23/16 15:35 Urine Microscopic RBC 0-3 per hpf (0-3) 04/23/16 15:35 Urine Microscopic WBC 50-100 per hpf (0-3) H 04/23/16 15:35 Ur Squamous Epith Cells Few per lpf (None-Few) 04/23/16 15:35 Urine Bacteria Moderate per hpf (None-Few) H 04/23/16 15:35 Hyaline Casts None Seen per lpf (None-Few) 04/23/16 15:35 Ur Culture Indicated? YES (NO) A 04/23/16 15:35 Urine Opiates Screen Negative ng/mL (Apkfjy=105) 04/23/16 15:35 Ur Barbiturates Screen Negative ng/mL (Pqzsjj=700) 04/23/16 15:35 Ur Phencyclidine Scrn Negative ng/mL (Cutoff=25) 04/23/16 15:35 Ur Amphetamines Screen Negative ng/mL (Yfvzlj=4925) 04/23/16 15:35 U Benzodiazepines Scrn Negative ng/mL (Pwekwd=813) 04/23/16 15:35 [place] 0.5 mEq/L (0.6-1.2) L 04/24/16 04:26 Urine Cocaine Screen Negative ng/mL (Cutoff= 300) 04/23/16 15:35 U Marijuana (THC) Screen Negative ng/mL (Cutoff = 50) 04/23/16 15:35 Ethyl Alcohol < 10 mg/dL (0-10) 04/23/16 14:55 Consult Discharge Plan - Plan Instructions: Urinary Tract Infection in Men (DC) [facility] [Primary Care Provider[facility] - Prescriptions: Haloperidol [Haldol] 20 mg PO TID #90 tablet Levofloxacin 500 mg PO DAILY #5 tablet
[2016-04-29] MEDS ORDERED: ALENDRONATE 70MG PO SCH (09:00)
== END 2016-04-27 13:39 | DRG 683 ==
LOC: EMEROO 14:21 → 3BNU 14:21 → OBSVTOIN 18:27 → SUATTDRO 18:27 → 3BNU 18:51
PROVIDERS: ADMIT Internal Medicine; ATTEND Internal Medicine Endocrinology, Diabetes & Metabolism

== ENCOUNTER 2017-03-05 16:53 | Observation (INO) ==
--- NOTE | 2017-03-05 17:10 | Emergency Department Note ---
Disposition Clinical Impression: Impaired ambulation, Disequilibrium, Abnormal EKG Altered mental status Qualifiers: Altered mental status type: unspecified Qualified Code(s): R41.82 - Altered mental status, unspecified Disposition: Admitted As Inpatient Condition: Fair Referrals: NONE,PCP [Primary Care Provider] - Forms: ED Satisfaction Letter Time of Disposition: 22:31 Altered Mental Status HPI - General Chief Complaint: ED Weakness Stated Complaint: lethargic Time Seen by Provider: 03/05/17 17:03 Source: EMS Mode of arrival: EMS Limitations: altered mental status Nursing Notes Reviewed: Yes Vital Signs Reviewed: Yes - History of Present Illness HPI Narrative: Patient is a 67-year-old male that was brought to the ED by EMS due to concern for altered mental status/lethargy. EMS was able to tell the nursing staff that he was from her retirement, they are unsure of his baseline mental status. Report was given to nursing staff that the patient was reportedly altered for the past 6-7 hours. On my exam, the patient will not open his eyes, will not answer any questions for me, will not perform any commands. ROS unable to be obtained. He is sitting in the bed with his legs crossed, head down with his eyes closed. According to older records, patient does have a hx of schizophrenia, is on haldol and lithium. - Related Data Home Medications Medication Instructions Recorded Confirmed Acetaminophen [Tylenol] 650 mg PO TID PRN 02/05/16 04/23/16 Alendronate Sodium [Fosamax] 70 mg PO QWEEK 02/05/16 04/23/16 Aspirin [Lo-Dose Aspirin EC] 81 mg PO DAILY 02/05/16 04/23/16 Atorvastatin [Lipitor] 20 mg PO HS 02/05/16 04/23/16 Benztropine [Cogentin] 1 mg PO BID 02/05/16 04/23/16 Calcium Carb, Citrate/Vit D3 2 tab PO BID 02/05/16 04/23/16 [Calcium + D3 ER Tablet] Docusate [Colace] 100 mg PO TID 02/05/16 04/23/16 Haloperidol 20 mg PO TID 02/05/16 04/23/16 Haloperidol Decanoate [Haldol] 50 mg IM QMONTH 02/05/16 04/23/16 Ipratropium/Albuterol Neb [Duoneb] 3 ml IH Q6HR 02/05/16 04/23/16 Latanoprost [Xalatan] 1 drop RIGHT EYE HS 02/05/16 04/23/16 [place] Carbonate 300 mg PO DAILY 02/05/16 04/23/16 Magnesium Hydroxide [Milk of 60 ml PO DAILY PRN 02/05/16 04/23/16 Magnesia] Metoprolol XL (24 HR) Succ [Toprol 50 mg PO BID 02/05/16 04/23/16 Xl] Omeprazole [PriLOSEC] 20 mg PO BIDAC 02/05/16 04/23/16 Sertraline [Zoloft] 150 mg PO DAILY 02/05/16 04/23/16 Terazosin [Hytrin] 5 mg PO HS 02/05/16 04/23/16 TraZODone 50 mg PO TID 02/05/16 04/23/16 amLODIPine [Norvasc] 5 mg PO DAILY 02/05/16 04/23/16 Ipratropium/Albuterol Sulfate 1 puff IH Q6H PRN 04/23/16 04/23/16 [Combivent Respimat Inhal [place]] Previous Rx's Medication Instructions Recorded levoFLOXacin [Levofloxacin] 500 mg PO DAILY #5 tablet 04/25/16 Haloperidol [Haldol] 20 mg PO TID #90 tablet 04/27/16 Tramadol HCl [Ultram] 50 mg PO BID PRN #10 tab 12/20/16 cephALEXin [Cephalexin] 500 mg PO TID #21 tablet 02/12/17 Sulfamethoxazole/Trimeth DS 1 each PO BID #20 tablet 02/22/17 [Bactrim DS] Allergies Allergy/AdvReac Type Severity Reaction Status Date / Time No Known Allergies Allergy Verified 05/02/16 12:49 Limitations: ROS unobtainable due to patients medical condition Constitutional: Denies: fever Past Medical History - Past Medical History Source: old records reviewed Medical history: Reports: GERD, glaucoma, hypertension, osteoporosis Surgical history: Reports: cholecystectomy, other Psychiatric history: Reports: other - Social History Smoking Status: Current every day smoker Smokeless Tobacco Status: No Alcohol use: Reports: none Drug use: Reports: none Physical Exam - General General appearance: alert, other (Sitting comfortably, in no acute distress, head is down, eyes are closed, legs are crossed. Will not open eyes, will not answer any questions, will not perform any commands. Shakes head no when asked to open eyes, open mouth, perform any neuro testing. ) - Head Head exam: atraumatic, normocephalic, normal inspection - Eye Eye exam: Present: other (Eyes opened by myself, mild right eye deviation laterally, PERRLA. EOM not able to be assessed due to lack of participiation. ) - ENT ENT exam: mucous membranes dry, other (external exam WNL, will not open mouth for furthe rassessment) - Neck Neck exam: Present: normal inspection, full ROM, trachea midline. Absent: tenderness - Chest Chest inspection: Present: normal inspection, symmetric chest wall rise - Respiratory Respiratory exam: Present: normal lung sounds bilaterally - Cardiovascular Cardiovascular exam: Present: regular rate, normal rhythm, normal heart sounds - Abdominal Exam Abdominal exam: Present: soft, Non-Tender. Absent: tenderness, distention, guarding, rebound, rigidity - Extremities Exam Extremities exam: Present: normal inspection, full ROM. Absent: tenderness, pedal edema - Neurological Exam Neurological exam: Present: other (Sitting comfortably, in no acute distress, head is down, eyes are closed, legs are crossed. Will not open eyes, will not answer any questions, will not perform any commands. Shakes head no when asked to open eyes, open mouth, perform any neuro testing. Unable to assess cranial nervies and motor sensory of extremities due to no participation. ) - Psychiatric Psychiatric exam: Present: normal affect, normal mood - Skin Skin exam: Present: warm, dry, intact, normal color Course Course Narrative: Vitals WNL. Physical exam shows: Sitting comfortably, in no acute distress, head is down, eyes are closed, legs are crossed. Will not open eyes, will not answer any questions, will not perform any commands. Shakes head no when asked to open eyes, open mouth, perform any neuro testing. Eyes opened by myself, mild right eye deviation laterally, PERRLA. EOM not able to be assessed due to lack of participiation. external exam WNL, will not open mouth for further assessment. Due to having little to no further information about patient, will perform AMS workup. We will obtain head CT, basic blood work, ethanol, aspirin , Tylenol of old, urinalysis. There are previous notes that state that the patient was not cooperative during some encounters, some notes say that he was cooperative and answered questions, others that state that the patient had a UTI. With no consistency of previous notes and no other history on him, I feel that the full assessment needs to be performed here. 17:50 ER group social worker was able to contact retirement and speak with implementation coordinator. He is a resident of [facility]. According to implementation coordinator, the patient has been losing weight over the past few months, recently stopped eating, has not urinated today. He does have a history of BPH and possible prostate cancer, although he has not had any testing to diagnose prostate cancer but has had elevated PSA and history of urinary retention. In the past, he has had to be straight cathed due to having residual of 800-900 mL of urine in bladder. He has also been falling a lot at home, had to be carried today due to alert showed a weakness. [employer] In[employer] also states that the patient usually talks at home and has not talked at all today. 21:04 overall, labs show chronic anemia and near baseline for the patient, creatinine is elevated near baseline for the patient. Potassium mildly high. Otherwise, no other major concerning labs. Chest x-ray was negative for any acute cardiopulmonary process. Head CT showed no acute intracranial abnormality. We have been trying for a couple hours now to get a urine sample. Bedside US showed large amount of urine in bladder. Patient has been refusing straight catheter, with somewhat combative when trying to get urine sample. He has tried giving a sample multiple times and has been unable to give sample. However, patient was just now able to void. Pending UA. Also, EKG shows new T wave changes in V3-V5 when compared to EKG at beginning of the month. Negative trop. TSH WNL. Patient also ambulated and is having disequilibrium, near falls when ambulating. WIll wait for UA and then will admit for AMS, abnormal EKG, disequilibrium and difficulty with ambulation. Chest X-Ray 03/05/17 17:13 IMPRESSION: 1. No acute cardiopulmonary disease, stable. D/ / 03/05/2017 17:41:12 Sachin Wallis MD / [facility] Interpreting Provider: Sachin Wallis MD Head CT 03/05/17 17:14 IMPRESSION: No acute intracranial abnormality. Patchy hypodensities in the periventricular and subcortical white matter, which are nonspecific, but may represent chronic small vessel ischemic change. D/ / 03/05/2017 18:07:17 Brandon Castro MD / [facility] Interpreting Provider: Brandon Castro MD Vital Signs Temperature 98.4 F 03/05/17 16:55 Pulse Rate 61 03/05/17 16:55 Respiratory Rate 18 03/05/17 16:55 Blood Pressure 127/81 03/05/17 16:55 O2 Sat by Pulse Oximetry 100 03/05/17 16:55 Temperature 98.2 F 03/05/17 22:38 Pulse Rate 68 03/05/17 22:38 Respiratory Rate 18 03/05/17 22:38 Blood Pressure 130/73 03/05/17 22:38 O2 Sat by Pulse Oximetry 99 03/05/17 22:38 Oxygen Delivery Oxygen Delivery Nasal Cannula Altered Mental Status - MDM Narrative Medical decision making narrative: overall, labs show chronic anemia and near baseline for the patient, creatinine is elevated near baseline for the patient. Potassium mildly high. Otherwise, no other major concerning labs. Chest x-ray was negative for any acute cardiopulmonary process. Head CT showed no acute intracranial abnormality. We have been trying for a couple hours now to get a urine sample. Bedside US showed large amount of urine in bladder. Patient has been refusing straight catheter, with somewhat combative when trying to get urine sample. He has tried giving a sample multiple times and has been unable to give sample. However, patient was just now able to void. Pending UA. Also, EKG shows new T wave changes in V3-V5 when compared to EKG at beginning of the month. Negative trop. TSH WNL. Patient also ambulated and is having disequilibrium, near falls when ambulating. WIll wait for UA and then will admit for AMS, abnormal EKG, disequilibrium and difficulty with ambulation. - Medical Records Medical records reviewed: Yes I reviewed the patient's medical records. - Lab Data Lab results reviewed: Yes I reviewed the patient's lab results. Result diagrams: 03/05/17 17:26 03/05/17 17:26 Lab Results 03/05/17 03/05/17 03/05/17 Range/Units 17:26 17:26 17:26 WBC 3.5 L (4.3-11.1) K/mcL RBC 3.38 L (4.19-5.50) M/mcL Hgb 9.4 L (12.9-16.9) g/dL Hct 30.6 L (37.5-50.1) % MCV 90.5 (83.0-100.0) fL MCH 27.8 L (28.0-33.3) pg MCHC 30.7 L (31.6-35.5) g/dL RDW 14.2 (11.5-14.5) % Plt Count 248 (140-400) K/mcL MPV 10.9 (9.4-12.4) fL Immature Gran % 0.3 (0-4) % Seg Neutrophils % 46.0 % Lymphocytes % 35.4 % Monocytes % 8.6 % Eosinophils % 8.6 % Basophils % 1.1 % Neutrophils # 1.6 (1.6-8.9) K/mcL Lymphocytes # 1.2 (0.6-4.6) K/mcL Monocytes # 0.3 (0.0-1.3) K/mcL Eosinophils # 0.3 (0.0-0.6) K/mcL Basophils # 0.0 (0.0-0.2) K/mcL PT 10.2 (9.4-12.1) Seconds INR 1.0 APTT 26.4 (26.0-36.0) Seconds Sodium 143 (136-145) mEq/L Potassium 4.7 H (3.5-4.5) mEq/L Chloride 114 H (98-109) mEq/L Carbon Dioxide 23 (19-29) mEq/L BUN 15 (8-26) mg/dL Creatinine 1.32 H (0.72-1.25) mg/dL Est GFR ( Amer) > 60 (> 60) Est GFR (Non-Af Amer) 54 L (> 60) BUN/Creatinine Ratio 11 (6-26) Glucose 111 H (70-99) mg/dL Calculated Osmolality 298 (280-300) Calcium 9.5 (8.6-10.8) mg/dL Total Bilirubin < 0.2 L (0.2-1.2) mg/dL Direct Bilirubin 0.1 (0.0-0.5) mg/dL Indirect Bilirubin 0.1 (0.0-1.2) mg/dL AST 15 (5-34) Units/L ALT 14 (0-55) Units/L Alkaline Phosphatase 72 (38-126) Units/L Troponin I (0-0.03) ng/mL Serum Total Protein 6.6 (6.0-8.3) g/dL Albumin 3.0 L (3.5-5.0) g/dL Globulin 3.6 H (2.4-3.5) g/dL Albumin/Globulin Ratio 0.8 L (1.1-2.2) TSH (0.350-4.840) mcIU/mL Urine Color (Yellow) Urine Clarity (Clear) Urine pH (5.0-8.0) pH Units Ur Specific [place] (1.010-1.025) Urine Protein (Neg-Trace) mg/dL Urine Glucose (UA) (Normal) mg/dL Urine Ketones (Negative) mg/dL Urine Blood (Negative) Urine Nitrite (Negative) Urine Bilirubin (Negative) Urine Urobilinogen (Normal) mg/dL Ur Leukocyte Esterase (Negative) Ur Culture Indicated? (NO) Salicylates (15-30) mg/dL Acetaminophen (10-30) mcg/mL [place] (0.6-1.2) mEq/L Ethyl Alcohol < 10 (0-10) mg/dL 03/05/17 03/05/17 03/05/17 Range/Units 17:26 17:26 17:26 WBC (4.3-11.1) K/mcL RBC (4.19-5.50) M/mcL Hgb (12.9-16.9) g/dL Hct (37.5-50.1) % MCV (83.0-100.0) fL MCH (28.0-33.3) pg MCHC (31.6-35.5) g/dL RDW (11.5-14.5) % Plt Count (140-400) K/mcL MPV (9.4-12.4) fL Immature Gran % (0-4) % Seg Neutrophils % % Lymphocytes % % Monocytes % % Eosinophils % % Basophils % % Neutrophils # (1.6-8.9) K/mcL Lymphocytes # (0.6-4.6) K/mcL Monocytes # (0.0-1.3) K/mcL Eosinophils # (0.0-0.6) K/mcL Basophils # (0.0-0.2) K/mcL PT (9.4-12.1) Seconds INR APTT (26.0-36.0) Seconds Sodium (136-145) mEq/L Potassium (3.5-4.5) mEq/L Chloride (98-109) mEq/L Carbon Dioxide (19-29) mEq/L BUN (8-26) mg/dL Creatinine (0.72-1.25) mg/dL Est GFR ( Amer) (> 60) Est GFR (Non-Af Amer) (> 60) BUN/Creatinine Ratio (6-26) Glucose (70-99) mg/dL Calculated Osmolality (280-300) Calcium (8.6-10.8) mg/dL Total Bilirubin (0.2-1.2) mg/dL Direct Bilirubin (0.0-0.5) mg/dL Indirect Bilirubin (0.0-1.2) mg/dL AST (5-34) Units/L ALT (0-55) Units/L Alkaline Phosphatase (38-126) Units/L Troponin I 0.01 (0-0.03) ng/mL Serum Total Protein (6.0-8.3) g/dL Albumin (3.5-5.0) g/dL Globulin (2.4-3.5) g/dL Albumin/Globulin Ratio (1.1-2.2) TSH 1.167 (0.350-4.840) mcIU/mL Urine Color (Yellow) Urine Clarity (Clear) Urine pH (5.0-8.0) pH Units Ur Specific [place] (1.010-1.025) Urine Protein (Neg-Trace) mg/dL Urine Glucose (UA) (Normal) mg/dL Urine Ketones (Negative) mg/dL Urine Blood (Negative) Urine Nitrite (Negative) Urine Bilirubin (Negative) Urine Urobilinogen (Normal) mg/dL Ur Leukocyte Esterase (Negative) Ur Culture Indicated? (NO) Salicylates (15-30) mg/dL Acetaminophen (10-30) mcg/mL [place] 0.8 (0.6-1.2) mEq/L Ethyl Alcohol (0-10) mg/dL 03/05/17 03/05/17 Range/Units 17:26 20:56 WBC (4.3-11.1) K/mcL RBC (4.19-5.50) M/mcL Hgb (12.9-16.9) g/dL Hct (37.5-50.1) % MCV (83.0-100.0) fL MCH (28.0-33.3) pg MCHC (31.6-35.5) g/dL RDW (11.5-14.5) % Plt Count (140-400) K/mcL MPV (9.4-12.4) fL Immature Gran % (0-4) % Seg Neutrophils % % Lymphocytes % % Monocytes % % Eosinophils % % Basophils % % Neutrophils # (1.6-8.9) K/mcL Lymphocytes # (0.6-4.6) K/mcL Monocytes # (0.0-1.3) K/mcL Eosinophils # (0.0-0.6) K/mcL Basophils # (0.0-0.2) K/mcL PT (9.4-12.1) Seconds INR APTT (26.0-36.0) Seconds Sodium (136-145) mEq/L Potassium (3.5-4.5) mEq/L Chloride (98-109) mEq/L Carbon Dioxide (19-29) mEq/L BUN (8-26) mg/dL Creatinine (0.72-1.25) mg/dL Est GFR ( Amer) (> 60) Est GFR (Non-Af Amer) (> 60) BUN/Creatinine Ratio (6-26) Glucose (70-99) mg/dL Calculated Osmolality (280-300) Calcium (8.6-10.8) mg/dL Total Bilirubin (0.2-1.2) mg/dL Direct Bilirubin (0.0-0.5) mg/dL Indirect Bilirubin (0.0-1.2) mg/dL AST (5-34) Units/L ALT (0-55) Units/L Alkaline Phosphatase (38-126) Units/L Troponin I (0-0.03) ng/mL Serum Total Protein (6.0-8.3) g/dL Albumin (3.5-5.0) g/dL Globulin (2.4-3.5) g/dL Albumin/Globulin Ratio (1.1-2.2) TSH (0.350-4.840) mcIU/mL Urine Color Yellow (Yellow) Urine Clarity Clear (Clear) Urine pH 6.5 (5.0-8.0) pH Units Ur Specific [place] 1.013 (1.010-1.025) Urine Protein Negative (Neg-Trace) mg/dL Urine Glucose (UA) Normal (Normal) mg/dL Urine Ketones Negative (Negative) mg/dL Urine Blood Negative (Negative) Urine Nitrite Negative (Negative) Urine Bilirubin Negative (Negative) Urine Urobilinogen Normal (Normal) mg/dL Ur Leukocyte Esterase Negative (Negative) Ur Culture Indicated? NO (NO) Salicylates < 5.0 L (15-30) mg/dL Acetaminophen < 1.0 L (10-30) mcg/mL [place] (0.6-1.2) mEq/L Ethyl Alcohol (0-10) mg/dL - Radiology Data Radiology results reviewed: Yes I reviewed the patient's radiology results. Chest X-Ray 03/05/17 17:13 IMPRESSION: 1. No acute cardiopulmonary disease, stable. D/ / 03/05/2017 17:41:12 Sachin Wallis MD / [facility] Interpreting Provider: Sachin Wallis MD Head CT 03/05/17 17:14 IMPRESSION: No acute intracranial abnormality. Patchy hypodensities in the periventricular and subcortical white matter, which are nonspecific, but may represent chronic small vessel ischemic change. D/ / 03/05/2017 18:07:17 Brandon Castro MD / [facility] Interpreting Provider: Brandon Castro MD - EKG Data EKG attestation: Yes I reviewed and interpreted this EKG. EKG results narrative: 03/05/2017 at 17:36. Normal sinus rhythm. Rate 64. NE 187. QRS 92. QTC 423. Left axis deviation. T-wave inversion in lead V3, V4, V5 that are new from previous EKG on 02/12/2017 S.B.ARamo - SJamiaARamo Situation: Demographics, MOA Background: Presenting Complaint, Relevant PMH, Meds, & Allergies Assessment: Vital Signs, Course and respsone to treatment, Exam Concerns, Patient/Family Expectation, Pertinant Lab Results, Outstanding Labs Recommendation: Barrier(s) to disposition, Recommendation based on pending studies, treatments, or consults S.B.A.R. Report Given to: Dr. Barnes, requested CPK level to be ordered, IM team will f/u on this S.B.A.R. Repor Time: 22:44 Attestation Statement - Attestation Attestation: I examined this patient and my medical decision-making was reviewed with the Resident Physician. I agree with the documented findings, disposition and treatment plan as described except to the extent set forth below. 67-year-old male presents ED because of altered mental status. He lives in a retirement and they sent to ED because of change in mental status and he will not walk. Patient will not contribute anything to his history of present illness or past medical history. Uncertain as to whether there have been any recent changes in his medications but his medication list includes several sedatives. There is no secondary report of any fevers or injuries. The patient is noncompliant with examination. Extremities do appear to be dry. Right eye appears sclerotic left eye is reactive to light. Trachea is midline no JVD. Chest is clear to auscultation bilaterally. Cardiac exam regular. Chest wall nontender. Abdomen soft nondistended nontender. No CVA tenderness. He moves all 4 extremities spontaneously but not with command and therefore strength testing is not really reliable. Emergency room workup is unremarkable including CT of his head. Initially he did have moderate urinary retention but managed to become combative with any attempts to place a Stoll catheter. Subsequently, he became more alert and was able stand up and urinate and empty his bladder. He continues with altered mental status and will be admitted for further evaluation. This may just be an issue of reduced clearance of some of his medications due to volume depletion
[2017-03-05 17:37] LABS: Basophils % 1.1 %; Eosinophils # 0.3 K/mcL (0.0-0.6); Eosinophils % 8.6 %; Hematocrit 30.6 % (37.5-50.1); Hemoglobin 9.4 g/dL (12.9-16.9); Immature Granulocytes % 0.3 % (0-4); Lymphocytes # 1.2 K/mcL (0.6-4.6); Lymphocytes % 35.4 %; Mean Corpuscular HGB Conc 30.7 g/dL (31.6-35.5); Mean Corpuscular Hemoglobin 27.8 pg (28.0-33.3); Mean Corpuscular Volume 90.5 fL (83.0-100.0); Mean Platelet Volume 10.9 fL (9.4-12.4); Monocytes # 0.3 K/mcL (0.0-1.3); Monocytes % 8.6 %; Neutrophils # 1.6 K/mcL (1.6-8.9); Platelet Count 248 K/mcL (140-400); Red Blood Count 3.38 M/mcL (4.19-5.50); Red Cell Distribution Width 14.2 % (11.5-14.5)
[2017-03-05 17:41] LABS: Prothrombin Time 10.2 Seconds (9.4-12.1)
[2017-03-05 17:44] LABS: Activated Partial Thrombo Time 26.4 Seconds (26.0-36.0)
[2017-03-05 17:48] LABS: Acetaminophen < 1.0 mcg/mL (10-30); Alanine Aminotransferase 14 Units/L (0-55); Albumin/Globulin Ratio 0.8 (1.1-2.2); Alkaline Phosphatase 72 Units/L (38-126); Aspartate Amino Transferase 15 Units/L (5-34); BUN/Creatinine Ratio 11 (6-26); Bilirubin,Direct 0.1 mg/dL (0.0-0.5); Bilirubin,Indirect 0.1 mg/dL (0.0-1.2); Bilirubin,Total < 0.2 mg/dL (0.2-1.2); Blood Urea Nitrogen 15 mg/dL (8-26); Calcium 9.5 mg/dL (8.6-10.8); Carbon Dioxide 23 mEq/L (19-29); Chloride 114 mEq/L (98-109); Ethanol < 10 mg/dL (0-10); Globulin 3.6 g/dL (2.4-3.5); Glucose 111 mg/dL (70-99); Osmolality,Calculated 298 (280-300); Potassium 4.7 mEq/L (3.5-4.5); Salicylate < 5.0 mg/dL (15-30); Sodium 143 mEq/L (136-145); Total Protein 6.6 g/dL (6.0-8.3); eGFR For African Americans > 60 (> 60); eGFR For Non-African Americans 54 (> 60)
[2017-03-05] MEDS ORDERED: 0.9 % Sodium Chloride 1,000 ML IVC ONE (18:19)
[2017-03-05 21:09] LABS: Bilirubin,Urine Negative (Negative); Blood,Urine Negative (Negative); Clarity,Urine Clear (Clear); Color,Urine Yellow (Yellow); Glucose,Urine (UA) Normal (Normal); Ketones,Urine Negative (Negative); Leukocyte Esterase,Urine Negative (Negative); Nitrite,Urine Negative (Negative); PH,Urine 6.5 pH Units (5.0-8.0); Protein,Urine Negative (Neg-Trace); Specific Gravity,Urine 1.013 (1.010-1.025); Urobilinogen,Urine Normal (Normal)
[2017-03-05 23:09] LABS: Creatine Kinase 62 Units/L (30-200)
[2017-03-06] MEDS ORDERED: Naloxone 0.4 MG/ML INJ IVP PRN (01:00)
--- NOTE | 2017-03-06 01:13 | Internal Med History&Physical ---
Date of Encounter: 03/06/17 Time of Encounter: 01:07 Assessment and Plan (1) Altered mental status Current visit: Yes Status: Acute 1. Will hold home meds and await verification of meds before resuming them or any. 2. No infectious etiology or symptoms found. 3. May be medication related. 4. May need psychiatry consultation to assist with his medication needs. 5. Will monitor glucose levels and treat hypoglycemia if present. Qualifiers: Altered mental status type: disorientation Qualified Code(s): R41.0 - Disorientation, unspecified (2) Schizophrenia Current visit: No Status: Chronic 1. Home medications will need verified in morning with his residential. 2. Will use PRN Haldol if necessary. 3. May need psychiatry consultation for medication guidance. Qualifiers: Schizophrenia type: unspecified Qualified Code(s): F20.9 - Schizophrenia, unspecified (3) Dehydration Current visit: Yes Status: Acute 1. Will place on IVF hydration and continue oral feeds. 2. Monitor clinically and wean off IVF once hydrated. (4) DVT prophylaxis Current visit: No Status: Acute 1. Heparin SQ. Internal Medicine - H&P: HPI Chief complaint: altered mental status Admitted From: Emergency Dept Plans for Post Hospital Care: Transfer Other (residential) History of present illness: Mr. Rosales is a 67 year old male [facility]. Workup in ER was negative and patient was admitted to the hospitalist service. What was reported to me from the ER staff was that patient lives in a residential and had somnolence, increased confusion, and disorientation according to third constitution party reports. Patient was brought in by squad and there were no family members or caretakers available. ER staff were able to make contact with his residential who state he has a history of underlying psychiatric illnesses, including schizophrenia. It was noted patient was altered beyond his baseline and had been losing appetite, losing weight, and falling. Patient was subsequently admitted to the hospitalist service. Upon my assessment of the patient, he is easily arousable, comfortable, in no acute distress, and pleasantly confused and disoriented. He denies any complaints or concerns at the present time, but I'm not sure he even understands my questions. He is oriented to person only. He does not know the time, place, situation, or his home address. He is also unable to provide any further history whatsoever. There are no family members or caretakers present to provide any history. Past Med Surg Social Fam HX - Past Medical History Source: old records reviewed, nursing notes reviewed, other (ER records reviewed ) Medical history: GERD, glaucoma, hypertension, osteoporosis Psychiatric history: schizophrenia, other - Past Surgical History Surgical History: cholecystectomy, other - Social History Smoking Status: Current every day smoker Smokeless Tobacco Status: No Alcohol use: none Drug use: none Current living situation: Nursing Home - Family History Mother History Unknown: Yes Father History Unknown: Yes Internal Medicine - H&P: Meds Acetaminophen [Tylenol] 650 mg PO TID PRN 02/05/16 [History] Alendronate Sodium [Fosamax] 70 mg PO QWEEK 02/05/16 [History] Aspirin [Lo-Dose Aspirin EC] 81 mg PO DAILY 02/05/16 [History] Atorvastatin [Lipitor] 20 mg PO HS 02/05/16 [History] Benztropine [Cogentin] 1 mg PO BID 02/05/16 [History] Calcium Carb, Citrate/Vit D3 [Calcium + D3 ER Tablet] 2 tab PO BID 02/05/16 [ History] Docusate [Colace] 100 mg PO TID 02/05/16 [History] Haloperidol 20 mg PO TID 02/05/16 [History] Haloperidol Decanoate [Haldol] 50 mg IM QMONTH 02/05/16 [History] Ipratropium/Albuterol Neb [Duoneb] 3 ml IH Q6HR 02/05/16 [History] Latanoprost [Xalatan] 1 drop RIGHT EYE HS 02/05/16 [History] [place] Carbonate 300 mg PO DAILY 02/05/16 [History] Magnesium Hydroxide [Milk of Magnesia] 60 ml PO DAILY PRN 02/05/16 [History] Metoprolol XL (24 HR) Succ [Toprol Xl] 50 mg PO BID 02/05/16 [History] Omeprazole [PriLOSEC] 20 mg PO BIDAC 02/05/16 [History] Sertraline [Zoloft] 150 mg PO DAILY 02/05/16 [History] Terazosin [Hytrin] 5 mg PO HS 02/05/16 [History] TraZODone 50 mg PO TID 02/05/16 [History] amLODIPine [Norvasc] 5 mg PO DAILY 02/05/16 [History] Ipratropium/Albuterol Sulfate [Combivent Respimat Inhal [place]] 1 puff IH Q6H PRN 04/23/16 [History] levoFLOXacin [Levofloxacin] 500 mg PO DAILY #5 tablet 04/25/16 [Rx] Haloperidol [Haldol] 20 mg PO TID #90 tablet 04/27/16 [Rx] Tramadol HCl [Ultram] 50 mg PO BID PRN #10 tab 12/20/16 [Rx] cephALEXin [Cephalexin] 500 mg PO TID #21 tablet 02/12/17 [Rx] Sulfamethoxazole/Trimeth DS [Bactrim DS] 1 each PO BID #20 tablet 02/22/17 [Rx] 3 Allergy/AdvReac Type Severity Reaction Status Date / Time No Known Allergies Allergy Verified 05/02/16 12:49 ROS unobtainable: due to mental status - Constitutional Vitals: Temp Pulse Resp BP Pulse Ox 98.3 F 68 16 147/64 99 03/06/17 00:35 03/05/17 22:38 03/06/17 00:35 03/06/17 00:35 03/05/17 22:38 General appearance: Present: cooperative, A&O X 1, pleasant, no acute distress Exam: looks a little dehydrated, otherwise no acute distress - Head Head exam: Present: atraumatic, normal inspection - Expanded Head Exam Head exam expanded: Absent: abrasion, contusion, general tenderness - Eye Eye exam: Present: EOMI, normal appearance, PERRL. Absent: scleral icterus Pupils: Present: normal accommodation - ENT ENT exam: Present: mucous membranes dry, normal exam - Neck Neck exam general surgery: Present: full ROM, supple. Absent: lymphadenopathy, tenderness, nuchal rigidity - Respiratory Respiratory exam: Present: CTAB. Absent: chest wall tenderness, rales, respiratory distress, rhonchi, wheezes - Cardiovascular Cardiovascular exam: Present: RRR, +S1, +S2. Absent: diastolic murmur, systolic murmur - GI/Abdominal GI/Abdominal exam: Present: normal bowel sounds, soft. Absent: guarding, hepatomegaly, mass, splenomegaly, tenderness - Extremities Exam Extremities exam: Present: full ROM, normal capillary refill, warm, radial pulses palpable and symmetrical. Absent: calf tenderness, joint swelling, pedal edema, tenderness - Back Exam Back exam: Absent: CVA tenderness (L), CVA tenderness (R) - Neurological Exam Neurological exam: Present: altered, no focal deficits, strengths equal and symetr throughout. Absent: oriented X3 - Psychiatric Psychiatric exam: Present: flat affect. Absent: agitated, manic - Skin Skin exam: Present: dry, warm. Absent: rash Internal Med - H&P Results - Labs CBC & Chem 7: 03/05/17 17:26 03/05/17 17:26 - EKG Data -: EKG Interpreted by Myself EKG shows normal: sinus rhythm - EKG Data Prior EKG available for review: no EKG comments: 03/06/17 01:[address]-T changes - Diagnostic Studies Chest x-ray Status: image reviewed by me (negative) CT scan - head Additional comments: report reviewed -- negative
[2017-03-06] MEDS: 0.9 % Sodium Chloride 1,000 ML IVC SCH ×2 (02:02→12:22)
[2017-03-06] MEDS: *HR* Heparin 5,000 UNIT/ML VIAL SQ SCH ×2 (04:57→18:26)
[2017-03-06 05:55] LABS: Basophils # 0.1 K/mcL (0.0-0.2); Basophils % 1.3 %; Eosinophils # 0.3 K/mcL (0.0-0.6); Eosinophils % 6.7 %; Hematocrit 27.2 % (37.5-50.1); Hemoglobin 8.4 g/dL (12.9-16.9); Immature Granulocytes % 0.3 % (0-4); Lymphocytes # 1.6 K/mcL (0.6-4.6); Lymphocytes % 41.1 %; Mean Corpuscular HGB Conc 30.9 g/dL (31.6-35.5); Mean Corpuscular Hemoglobin 27.8 pg (28.0-33.3); Mean Corpuscular Volume 90.1 fL (83.0-100.0); Mean Platelet Volume 11.2 fL (9.4-12.4); Monocytes # 0.3 K/mcL (0.0-1.3); Neutrophils # 1.7 K/mcL (1.6-8.9); Platelet Count 221 K/mcL (140-400); Red Blood Count 3.02 M/mcL (4.19-5.50); Red Cell Distribution Width 14.1 % (11.5-14.5); Segmented Neutrophils % 42.6 %
[2017-03-06 06:12] LABS: Alanine Aminotransferase 14 Units/L (0-55); Albumin 2.7 g/dL (3.5-5.0); Albumin/Globulin Ratio 0.8 (1.1-2.2); Alkaline Phosphatase 65 Units/L (38-126); Aspartate Amino Transferase 16 Units/L (5-34); BUN/Creatinine Ratio 12 (6-26); Blood Urea Nitrogen 13 mg/dL (8-26); Calcium 8.7 mg/dL (8.6-10.8); Carbon Dioxide 23 mEq/L (19-29); Chloride 115 mEq/L (98-109); Globulin 3.2 g/dL (2.4-3.5); Glucose 88 mg/dL (70-99); Magnesium 1.8 mg/dL (1.6-2.6); Osmolality,Calculated 294 (280-300); Potassium 4.2 mEq/L (3.5-4.5); Sodium 142 mEq/L (136-145); Total Protein 5.9 g/dL (6.0-8.3); eGFR For African Americans > 60 (> 60); eGFR For Non-African Americans > 60 (> 60)
[2017-03-06 06:13] LABS: Bilirubin,Total < 0.2 mg/dL (0.2-1.2)
--- NOTE | 2017-03-06 08:21 | Electrocardiograph Report ---
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
[2017-03-06] MEDS ORDERED: (Ipratropium/Albuterol Sulfate [Combivent Respimat In) IH PRN (15:47)
[2017-03-06] MEDS: Ipratropium/Albuterol Neb 3 ML IH SCH ×2 (16:34→21:42)
[2017-03-06] MEDS: Metoprolol XL (24 HR) Succ 50 MG TAB.ER.24H PO SCH (20:05)
[2017-03-06] MEDS: Divalproex (24 HR) 250 MG TABLET PO SCH (20:05)
[2017-03-06] MEDS: Finasteride 5 MG TABLET PO SCH (20:05)
[2017-03-07] MEDS: Ipratropium/Albuterol Neb 3 ML IH SCH ×4 (03:58→22:03)
[2017-03-07] MEDS: *HR* Heparin 5,000 UNIT/ML VIAL SQ SCH ×2 (05:35→16:50)
[2017-03-07] MEDS: Metoprolol XL (24 HR) Succ 50 MG TAB.ER.24H PO SCH ×2 (08:24→19:56)
[2017-03-07] MEDS: Aspirin Enteric Coated 81 MG Tablet PO SCH (08:24)
[2017-03-07] MEDS: amLODIPine 5 MG TABLET PO SCH (08:24)
--- NOTE | 2017-03-07 14:24 | Internal Med Progress Note ---
Date of Encounter: 03/07/17 Time of Encounter: 14:18 - Assessment and plan (1) Encephalopathy acute Current Visit: Yes Status: Acute Assessment and plan: Details unclear but apparently lives in a detention and presented to ER with altered mental status. No family or home staff at bedside for collateral. With reported declining condition over the last month, requiring higher level of care than what can be provided at detention. Baseline mentation unknown. Alert to self, follows commands. Appears neurologically intact. Head CT negative, no infectious or metabolic abnormalities apparent. Possible underlying dementia? Continue supportive care for now, attempt to reach family/ detention staff. PT/OT consult. (2) Schizophrenia Current Visit: No Status: Chronic Assessment and plan: per documented history. On multiple psychiatric medications. Calm and cooperative, appears stable. Continue home medication regimen. Qualifiers: Schizophrenia type: unspecified Qualified Code(s): F20.9 - Schizophrenia, unspecified (3) HTN (hypertension) Current Visit: No Status: Chronic Assessment and plan: per hx. BP controlled. Continue home BP medication. Monitor PT and titrate PRN Qualifiers: Hypertension type: essential hypertension Qualified Code(s): I10 - Essential (primary) hypertension (4) DVT prophylaxis Current Visit: No Status: Acute (5) BPH (benign prostatic hyperplasia) Current Visit: Yes Status: Acute Assessment and plan: per hx. with reported urinary retention issues. Continue home medications, PRN BladderScan no void. Straight catheter PRN. Would avoid Stoll catheter as patient intermittently confused/aggressive and history of pulling out Stoll catheter. Qualifiers: Lower urinary tract symptom presence: symptoms absent Qualified Code(s): N40.0 - Benign prostatic hyperplasia without lower urinary tract symptoms - Subjective Interval history: Seen and examined at bedside, patient is new to me, information obtained mostly from chart review patient is alert to self only. Patient is alert to self only , he is responsive and more answer some questions. Says he is hungry, otherwise has no other complaints. No family at bedside for collateral. - Constitutional Vitals: Temp Pulse Resp BP Pulse Ox 97.3 F L 57 16 138/65 98 03/07/17 11:11 03/07/17 11:11 03/07/17 11:11 03/07/17 11:11 03/07/17 11:11 General appearance: Present: cooperative, A&O X 1, pleasant, no acute distress - Head Head exam: Present: atraumatic, normocephalic - Eye Eye exam: Present: PERRL, conjuntiva pink, sclera anicteric Pupils: Present: PERRL - Neck Neck exam general surgery: Present: supple, trachea midline. Absent: lymphadenopathy - Respiratory Respiratory exam: Present: CTAB. Absent: accessory muscle use, rales, rhonchi, wheezes - Cardiovascular Cardiovascular exam: Present: RRR, +S1, +S2. Absent: diastolic murmur, gallop, rubs, systolic murmur - GI/Abdominal GI/Abdominal exam: Present: normal bowel sounds, soft, no peritoneal signs. Absent: distended, tenderness - Extremities Exam Extremities exam: Present: warm, radial pulses palpable and symmetrical. Absent : calf tenderness, cyanotic, pedal edema - Neurological Exam Neurological exam: Present: CN II-XII intact, oriented X3, no focal deficits. Absent: pronater drift, facial droop, speech deficit - Skin Skin exam: Present: dry, intact Internal Medicine: Result - Labs CBC & Chem 7: 03/06/17 05:00 03/06/17 05:00 - ABG Interpretation ABG results: PT/INR, D-dimer PT 10.2 Seconds (9.4-12.1) 03/05/17 17:26 Consult Discharge Plan - Plan Referrals: NONE,PCP [Primary Care Provider] -
[2017-03-07] MEDS: Finasteride 5 MG TABLET PO SCH (19:56)
[2017-03-07] MEDS: Divalproex (24 HR) 250 MG TABLET PO SCH (19:56)
[2017-03-08] MEDS ORDERED: Melatonin 3 MG TABLET PO ONE ×2 (00:01→22:38)
[2017-03-08] MEDS: Ipratropium/Albuterol Neb 3 ML IH SCH ×4 (03:48→21:12)
[2017-03-08] MEDS: *HR* Heparin 5,000 UNIT/ML VIAL SQ SCH ×2 (05:15→16:43)
[2017-03-08] MEDS: Acetaminophen 325 MG TABLET PO PRN ×2 (09:21→20:17)
[2017-03-08] MEDS: Aspirin Enteric Coated 81 MG Tablet PO SCH (09:21)
[2017-03-08] MEDS: amLODIPine 5 MG TABLET PO SCH (09:22)
[2017-03-08] MEDS: Metoprolol XL (24 HR) Succ 50 MG TAB.ER.24H PO SCH ×2 (09:22→20:15)
--- NOTE | 2017-03-08 16:04 | Internal Med Progress Note ---
Date of Encounter: 03/08/17 Time of Encounter: 11:40 - Assessment and plan (1) Encephalopathy acute Current Visit: Yes Status: Acute Assessment and plan: Unclear etiology. Most likely related to patient's underlying history of schizophrenia and could also be related to his medications. Appears to be improving as patient is able to answer questions better. From a medical standpoint, no further workup planned. 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 Continue patient's home medications. (2) BPH (benign prostatic hyperplasia) Current Visit: Yes Status: Acute Assessment and plan: Continue Flomax Qualifiers: Lower urinary tract symptom presence: symptoms absent Qualified Code(s): N40.0 - Benign prostatic hyperplasia without lower urinary tract symptoms (3) HTN (hypertension) Current Visit: Yes Status: Chronic Assessment and plan: Blood pressure is well controlled at this time. Qualifiers: Hypertension type: essential hypertension Qualified Code(s): I10 - Essential (primary) hypertension (4) Schizophrenia Current Visit: Yes Status: Chronic Assessment and plan: Continue home medications. Qualifiers: Schizophrenia type: unspecified Qualified Code(s): F20.9 - Schizophrenia, unspecified (5) DVT prophylaxis Current Visit: No Status: Acute Assessment and plan: With subcutaneous heparin - Subjective Interval history: Patient is currently lying in bed. Denies any complaints. Just wants to go home/ or to rehabilitation - Constitutional Vitals: Temp Pulse Resp BP Pulse Ox 98.6 F 126 16 141/51 94 03/08/17 14:19 03/08/17 14:19 03/08/17 14:19 03/08/17 14:19 03/08/17 14:19 General appearance: Present: no acute distress, answers questions appropriately. Absent: cooperative Exam: Refused my examination Internal Medicine: Result - Labs CBC & Chem 7: 03/06/17 05:00 03/06/17 05:00 - ABG Interpretation ABG results: PT/INR, D-dimer PT 10.2 Seconds (9.4-12.1) 03/05/17 17:26 Consult Discharge Plan - Plan Referrals: NONE,PCP [Primary Care Provider] -
[2017-03-08] MEDS: Finasteride 5 MG TABLET PO SCH (20:15)
[2017-03-08] MEDS: Divalproex (24 HR) 250 MG TABLET PO SCH (20:15)
[2017-03-09] MEDS: Acetaminophen 325 MG TABLET PO PRN ×2 (02:28→09:01)
[2017-03-09] MEDS: Ipratropium/Albuterol Neb 3 ML IH SCH ×4 (03:39→23:10)
[2017-03-09] MEDS: *HR* Heparin 5,000 UNIT/ML VIAL SQ SCH ×2 (06:02→16:31)
[2017-03-09] MEDS: Metoprolol XL (24 HR) Succ 50 MG TAB.ER.24H PO SCH ×2 (09:00→19:49)
[2017-03-09] MEDS: Aspirin Enteric Coated 81 MG Tablet PO SCH (09:00)
[2017-03-09] MEDS: amLODIPine 5 MG TABLET PO SCH (09:00)
--- NOTE | 2017-03-09 11:39 | Internal Med Progress Note ---
<Rachel Venegas - Last Filed: 03/09/17 11:56> Date of Encounter: 03/09/17 Time of Encounter: 11:37 - Assessment and plan (1) Encephalopathy acute Current Visit: Yes Status: Acute Assessment and plan: head CT negative for any acute intracranial abnormality CXR showed no acute process UA unremarkable. patient's baseline is unknown Etiology unclear at this time. Plan: consult to social security benefits interviewer for placement. (2) Anemia Current Visit: No Status: Acute Assessment and plan: last Hg 8.4, baseline around 11 etiology unclear plan: will repeat labs tomorrow stool guiac pending B12, folate, iron profile, ferritin will be checked with tomorrow's labs. Qualifiers: Anemia type: unspecified type Qualified Code(s): D64.9 - Anemia, unspecified (3) BPH (benign prostatic hyperplasia) Current Visit: Yes Status: Acute Assessment and plan: Continue Flomax Qualifiers: Lower urinary tract symptom presence: symptoms absent Qualified Code(s): N40.0 - Benign prostatic hyperplasia without lower urinary tract symptoms (4) HTN (hypertension) Current Visit: Yes Status: Chronic Assessment and plan: continue home antihypertensives Qualifiers: Hypertension type: essential hypertension Qualified Code(s): I10 - Essential (primary) hypertension (5) Schizophrenia Current Visit: Yes Status: Chronic Assessment and plan: home meds resumed. PAMELA butler patient comes from assisted. Qualifiers: Schizophrenia type: unspecified Qualified Code(s): F20.9 - Schizophrenia, unspecified (6) DVT prophylaxis Current Visit: No Status: Acute Assessment and plan: heparin SQ - Subjective Interval history: 67M evaluated at bedside. he was laying under the covers with the covers over his head. he is alert and oriented x1. he states he has pain everywhere. he denies nausea, vomiting, diarrhea, fever, chills, chest pain, shortness of breath, hematuria, hematochezia, melena. patient refused physical exam. - Constitutional Vitals: Temp Pulse Resp BP Pulse Ox 98.5 F 61 17 142/88 98 03/09/17 08:53 03/09/17 08:53 03/09/17 08:53 03/09/17 08:53 03/09/17 08:53 General appearance: Present: A&O X 1, no acute distress. Absent: cooperative Exam: patient refused physical exam. Internal Medicine: Result - Labs CBC & Chem 7: 03/06/17 05:00 03/06/17 05:00 - ABG Interpretation ABG results: PT/INR, D-dimer PT 10.2 Seconds (9.4-12.1) 03/05/17 17:26 Consult Discharge Plan - Plan Referrals: NONE,PCP [Primary Care Provider] - <Roland Tristan - Last Filed: 03/09/17 12:43> Date of Encounter: 03/09/17 - Constitutional Vitals: Temp Pulse Resp BP Pulse Ox 98.5 F 61 17 142/88 98 03/09/17 08:53 03/09/17 08:53 03/09/17 08:53 03/09/17 08:53 03/09/17 08:53 Internal Medicine: Result - Labs CBC & Chem 7: 03/06/17 05:00 03/06/17 05:00 - ABG Interpretation ABG results: PT/INR, D-dimer PT 10.2 Seconds (9.4-12.1) 03/05/17 17:26 - Attending Attestation awaiting placement haldol PRN I examined this patient and my medical decision-making was reviewed with the Resident Physician. I agree with the documented findings, disposition and treatment plan as described except to the extent set forth below.
[2017-03-09] MEDS ORDERED: Haloperidol Lactate 5 MG/ML VIAL IVP PRN (12:43)
[2017-03-09] MEDS: Divalproex (24 HR) 250 MG TABLET PO SCH (19:46)
[2017-03-09] MEDS: Finasteride 5 MG TABLET PO SCH (19:49)
[2017-03-10] MEDS: Ipratropium/Albuterol Neb 3 ML IH SCH ×4 (03:40→22:00)
[2017-03-10] MEDS: Acetaminophen 325 MG TABLET PO PRN (04:11)
[2017-03-10] MEDS: *HR* Heparin 5,000 UNIT/ML VIAL SQ SCH ×2 (05:47→17:54)
[2017-03-10] MEDS: Metoprolol XL (24 HR) Succ 50 MG TAB.ER.24H PO SCH ×2 (07:54→20:11)
[2017-03-10] MEDS: amLODIPine 5 MG TABLET PO SCH (07:55)
[2017-03-10] MEDS: Aspirin Enteric Coated 81 MG Tablet PO SCH (07:55)
[2017-03-10 08:03] LABS: Calcium 8.4 mg/dL (8.6-10.8); Potassium 4.7 mEq/L (3.5-4.5)
[2017-03-10 08:41] LABS: Basophils % 0.8 %; Eosinophils # 0.2 K/mcL (0.0-0.6); Eosinophils % 5.5 %; Hematocrit 25.2 % (37.5-50.1); Hemoglobin 7.9 g/dL (12.9-16.9); Immature Granulocytes % 0.3 % (0-4); Lymphocytes # 1.7 K/mcL (0.6-4.6); Lymphocytes % 43.4 %; Mean Corpuscular HGB Conc 31.3 g/dL (31.6-35.5); Mean Corpuscular Hemoglobin 27.6 pg (28.0-33.3); Mean Corpuscular Volume 88.1 fL (83.0-100.0); Mean Platelet Volume 11.4 fL (9.4-12.4); Monocytes # 0.4 K/mcL (0.0-1.3); Monocytes % 10.4 %; Neutrophils # 1.5 K/mcL (1.6-8.9); Platelet Count 217 K/mcL (140-400); Red Blood Count 2.86 M/mcL (4.19-5.50); Red Cell Distribution Width 14.3 % (11.5-14.5); Segmented Neutrophils % 39.6 %
--- NOTE | 2017-03-10 09:02 | Internal Med Progress Note ---
<Rachel Venegas - Last Filed: 03/10/17 08:58> Date of Encounter: 03/10/17 Time of Encounter: 08:59 - Assessment and plan (1) Encephalopathy acute Current Visit: Yes Status: Acute Assessment and plan: head CT negative for any acute intracranial abnormality CXR showed no acute process UA unremarkable. patient's baseline is unknown Etiology unclear at this time. Plan: consult to home health care social worker for placement-likely Discharge saturday (2) REUBEN (acute kidney injury) Current Visit: No Status: Acute Assessment and plan: likely pre-renal secondary to dehydration. Plan: IVF (3) Anemia Current Visit: No Status: Acute Assessment and plan: Hg relatively stable at this time. etiology unclear plan: stool guiac pending iron profile, ferritin pending. Qualifiers: Anemia type: unspecified type Qualified Code(s): D64.9 - Anemia, unspecified (4) BPH (benign prostatic hyperplasia) Current Visit: Yes Status: Acute Assessment and plan: Continue Flomax Qualifiers: Lower urinary tract symptom presence: symptoms absent Qualified Code(s): N40.0 - Benign prostatic hyperplasia without lower urinary tract symptoms (5) HTN (hypertension) Current Visit: Yes Status: Chronic Assessment and plan: continue home antihypertensives Qualifiers: Hypertension type: essential hypertension Qualified Code(s): I10 - Essential (primary) hypertension (6) Schizophrenia Current Visit: Yes Status: Chronic Assessment and plan: home meds resumed. PAMELA butler patient comes from halfway. Qualifiers: Schizophrenia type: unspecified Qualified Code(s): F20.9 - Schizophrenia, unspecified (7) DVT prophylaxis Current Visit: No Status: Acute Assessment and plan: heparin SQ - Subjective Interval history: 67M evaluated at bedside. He was talking about hallucinations he was having previously with people stealing his shoes and rubbing his face constantly. he refused to speak with me any further. he also refused a physical exam. - Constitutional Vitals: Temp Pulse Resp BP Pulse Ox 98.0 F 60 17 114/72 92 03/10/17 07:59 03/10/17 07:59 03/10/17 07:59 03/10/17 07:59 03/10/17 07:59 General appearance: Present: no acute distress. Absent: cooperative Exam: patient refused physical exam. Internal Medicine: Result - Labs CBC & Chem 7: 03/10/17 07:26 03/10/17 07:26 Labs: Short CBC 03/10/17 Range/Units 07:26 WBC 3.9 L (4.3-11.1) K/mcL Hgb 7.9 L (12.9-16.9) g/dL Hct 25.2 L (37.5-50.1) % Plt Count 217 (140-400) K/mcL Neutrophils # 1.5 L (1.6-8.9) K/mcL [facility] 03/10/17 07:26 Sodium 140 Potassium 4.7 H Chloride 112 H Carbon Dioxide 22 BUN 23 Creatinine 1.48 H Glucose 100 H Calcium 8.4 L - ABG Interpretation ABG results: PT/INR, D-dimer PT 10.2 Seconds (9.4-12.1) 03/05/17 17:26 Consult Discharge Plan - Plan Referrals: NONE,PCP [Primary Care Provider] - <Roland Tristan H - Last Filed: 03/10/17 09:27> Date of Encounter: 03/10/17 - Constitutional Vitals: Temp Pulse Resp BP Pulse Ox 98.0 F 60 17 114/72 92 03/10/17 07:59 03/10/17 07:59 03/10/17 07:59 03/10/17 07:59 03/10/17 07:59 Internal Medicine: Result - Labs CBC & Chem 7: 03/10/17 07:26 03/10/17 07:26 Labs: Short CBC 03/10/17 Range/Units 07:26 WBC 3.9 L (4.3-11.1) K/mcL Hgb 7.9 L (12.9-16.9) g/dL Hct 25.2 L (37.5-50.1) % Plt Count 217 (140-400) K/mcL Neutrophils # 1.5 L (1.6-8.9) K/mcL [facility] 03/10/17 07:26 Sodium 140 Potassium 4.7 H Chloride 112 H Carbon Dioxide 22 BUN 23 Creatinine 1.48 H Glucose 100 H Calcium 8.4 L - ABG Interpretation ABG results: PT/INR, D-dimer PT 10.2 Seconds (9.4-12.1) 03/05/17 17:26 - Attending Attestation ARF possible dehydration creat 1.48 start IVF I examined this patient and my medical decision-making was reviewed with the Resident Physician. I agree with the documented findings, disposition and treatment plan as described except to the extent set forth below.
[2017-03-10] MEDS ORDERED: 0.9 % Sodium Chloride 1,000 ML IVC SCH (09:15)
[2017-03-10] MEDS: Divalproex (24 HR) 250 MG TABLET PO SCH (20:11)
[2017-03-10] MEDS: Finasteride 5 MG TABLET PO SCH (20:11)
[2017-03-11] MEDS: Ipratropium/Albuterol Neb 3 ML IH SCH ×2 (04:15→11:18)
[2017-03-11] MEDS: *HR* Heparin 5,000 UNIT/ML VIAL SQ SCH (05:50)
[2017-03-11] MEDS: Aspirin Enteric Coated 81 MG Tablet PO SCH (07:53)
[2017-03-11] MEDS: amLODIPine 5 MG TABLET PO SCH (07:53)
[2017-03-11] MEDS: Metoprolol XL (24 HR) Succ 50 MG TAB.ER.24H PO SCH (07:53)
--- NOTE | 2017-03-11 11:17 | Discharge Summary ---
<Rachel Venegas - Last Filed: 03/11/17 11:13> Date of Encounter: 03/11/17 Time of Encounter: 11:14 - Discharge Diagnosis (1) Encephalopathy acute Priority: Primary Status: Acute (2) REUBEN (acute kidney injury) Priority: Secondary Status: Acute (3) Anemia Priority: Secondary Status: Acute Qualifiers: Anemia type: unspecified type Qualified Code(s): D64.9 - Anemia, unspecified (4) BPH (benign prostatic hyperplasia) Priority: Secondary Status: Acute Qualifiers: Lower urinary tract symptom presence: symptoms absent Qualified Code(s): N40.0 - Benign prostatic hyperplasia without lower urinary tract symptoms (5) HTN (hypertension) Priority: Secondary Status: Chronic Qualifiers: Hypertension type: essential hypertension Qualified Code(s): I10 - Essential (primary) hypertension (6) Schizophrenia Priority: Secondary Status: Chronic Qualifiers: Schizophrenia type: unspecified Qualified Code(s): F20.9 - Schizophrenia, unspecified (7) DVT prophylaxis Priority: Secondary Status: Acute - Discharge Medications Prescriptions: Ferrous Sulfate [Iron] 325 mg PO BID #60 tablet Home Medications: Acetaminophen [Tylenol] 650 mg PO TID PRN 02/05/16 [History] Alendronate Sodium [Fosamax] 70 mg PO QWEEK 02/05/16 [History] Aspirin [Lo-Dose Aspirin EC] 81 mg PO DAILY 02/05/16 [History] Atorvastatin [Lipitor] 20 mg PO HS 02/05/16 [History] Benztropine [Cogentin] 1 mg PO BID 02/05/16 [History] Calcium Carb, Citrate/Vit D3 [Calcium + D3 ER Tablet] 2 tab PO BID 02/05/16 [ History] Docusate [Colace] 100 mg PO TID 02/05/16 [History] Haloperidol 20 mg PO TID 02/05/16 [History] Haloperidol Decanoate [Haldol] 50 mg IM QMONTH 02/05/16 [History] Ipratropium/Albuterol Neb [Duoneb] 3 ml IH Q6HR 02/05/16 [History] Latanoprost [Xalatan] 1 drop RIGHT EYE HS 02/05/16 [History] Magnesium Hydroxide [Milk of Magnesia] 60 ml PO DAILY PRN 02/05/16 [History] Metoprolol XL (24 HR) Succ [Toprol Xl] 50 mg PO BID 02/05/16 [History] Omeprazole [PriLOSEC] 20 mg PO BIDAC 02/05/16 [History] Sertraline [Zoloft] 150 mg PO DAILY 02/05/16 [History] TraZODone 50 mg PO HS 02/05/16 [History] amLODIPine [Norvasc] 5 mg PO DAILY 02/05/16 [History] Ipratropium/Albuterol Sulfate [Combivent Respimat Inhal [place]] 1 puff IH Q6H PRN 04/23/16 [History] Cholecalciferol (D-3) [Vitamin D] 1,000 unit PO DAILY 03/06/17 [History] Divalproex (24 HR) [Depakote ER (24 HR)] 750 mg PO HS 03/06/17 [History] Finasteride [Proscar] 5 mg PO HS 03/06/17 [History] Tamsulosin [Flomax] 0.8 mg PO DAILY 03/06/17 [History] Docusate [Colace] 100 mg PO BID PRN capsule 03/11/17 [Rx] Ferrous Sulfate [Iron] 325 mg PO BID #60 tablet 03/11/17 [Rx] Haloperidol Lactate [Haldol] 5 mg IVP Q6H PRN vial 03/11/17 [Rx] Allergies/Adverse Reactions: 3 Allergy/AdvReac Type Severity Reaction Status Date / Time No Known Allergies Allergy Verified 05/02/16 12:49 Date of admission: 03/05/17 22:52 Primary care physician: PCP NONE Consults: 03/06/17 10:14 Consult to Physical Therapy [CONS] Routine Comment: Evaluate, develop and implement POC Reason for Consult: weakness Consult to Clinical Biochemical Geneticist [CONS] Routine Reason for SW Consult: discharge planning 03/06/17 10:15 Consult to Occupational Therapy [CONS] Routine Comment: Evaluate, develop and implement POC Reason for Consult: weakness Discharging clinician: Rachel Venegas Anticipated date of discharge: 03/11/17 - Patient Status Disposition: Transfer SNF Condition: Fair Functional capacity at discharge: independent ambulation Overall status at discharge: patient is not back to baseline - Ambulatory Orders Ambulatory Orders: Basic Metabolic Panel [CHEM] Time Frame: 3 Days, Facility: [facility], Location: Lab - Discharge Instructions Follow Up With: NONE,PCP [Primary Care Provider] - Additional Instructions: Follow up with your psychiatrist follow up with primary care provider within one week of discharge please increase your oral water intake repeat BMP within 3 days if symptoms recur, please arrive to emergency department immediately. - Diet and Activity Activity: increase activity as tolerated Diet: advance to your usual diet Hospital course: Mr. Rosales is a 67 year old male with PMHx of GERD, glaucoma, HTN, osteoporosis , hx of schizophrenia and mood disorder. Patient [facility] to [facility] on 03/06/17 with chief complaint of altered mental status. Patient lives in a senior living and had somnolence, increased confusion, disorientation. He was brought by squad to the hospital and there were no family members or caretakers present at that time. CXR showed no acute abnormality. Head CT showed no acute intracranial abnormality. urinalysis was negative for any infection. Urine tox was positive for only salicylates and acetaminophen. There was no source of infection found, and no metabolic reason for his altered mental status could be found. anemia workup was done and iron was found to be low. patient will be discharged on oral iron therapy. Patient's Cr was initially elevated, then normalized and then he developed REUBEN again. IV fluids were ordered but patient refused IV access and IV fluids. Oral hydration was encouraged. Patient will have repeat BMP done upon discharge. [facility] Patient had no acute events during the course of his hospitalization and will be discharged in stable condition. Patient's baseline mental status is unknown so it is difficult to comment on whether his behavior is different from prior. He will follow up outpatient with psychiatry. Plan: Follow up with your psychiatrist follow up with primary care provider within one week of discharge if you do not have a primary care physician you may make an appointment at the residency clinic. please increase your oral water intake repeat BMP within 3 days if symptoms recur, please arrive to emergency department immediately. - Time Spent with Patient Total time spent providing and/or coordinating discharge services: - Constitutional Vitals: Temp Pulse Resp BP Pulse Ox 98.2 F 69 16 148/77 99 03/11/17 06:54 03/11/17 06:54 03/11/17 06:54 03/11/17 06:54 03/11/17 06:54 General appearance: Present: no acute distress. Absent: cooperative Exam: patient not answering questions properly, refuses physical exam <Joel Rebolledo - Last Filed: 03/11/17 13:02> Date of Encounter: 03/11/17 Date of admission: 03/05/17 22:52 Primary care physician: PCP NONE Consults: 03/06/17 10:14 Consult to Physical Therapy [CONS] Routine Comment: Evaluate, develop and implement POC Reason for Consult: weakness Consult to Clinical Biochemical Geneticist [CONS] Routine Reason for SW Consult: discharge planning 03/06/17 10:15 Consult to Occupational Therapy [CONS] Routine Comment: Evaluate, develop and implement POC Reason for Consult: weakness Hospital course: Mr. Rosales is a 67 year old male - Time Spent with Patient Total time spent providing and/or coordinating discharge services: - Constitutional Vitals: Temp Pulse Resp BP Pulse Ox 97.7 F 75 20 149/79 99 03/11/17 11:27 03/11/17 11:27 03/11/17 11:27 03/11/17 11:27 03/11/17 11:27
[2017-03-11 11:28] VITALS: BP 149/79
--- NOTE | 2017-03-11 12:49 | Physician Discharge Referral ---
ExtendedCare Referral Info Transfer To: ECF Provider in Charge after Transfer: PCP Institutional Level of Care: Skilled - Diagnosis (1) Encephalopathy acute Priority: Primary Status: Acute (2) ERUBEN (acute kidney injury) Priority: Secondary Status: Acute (3) Anemia Priority: Secondary Status: Acute (4) BPH (benign prostatic hyperplasia) Priority: Secondary Status: Acute (5) HTN (hypertension) Priority: Secondary Status: Chronic (6) Schizophrenia Priority: Secondary Status: Chronic (7) DVT prophylaxis Priority: Secondary Status: Acute Prognosis: Fair - Transfer Medications Prescriptions: Ferrous Sulfate [Iron] 325 mg PO BID #60 tablet Home Medications: Acetaminophen [Tylenol] 650 mg PO TID PRN 02/05/16 [History] Alendronate Sodium [Fosamax] 70 mg PO QWEEK 02/05/16 [History] Aspirin [Lo-Dose Aspirin EC] 81 mg PO DAILY 02/05/16 [History] Atorvastatin [Lipitor] 20 mg PO HS 02/05/16 [History] Benztropine [Cogentin] 1 mg PO BID 02/05/16 [History] Calcium Carb, Citrate/Vit D3 [Calcium + D3 ER Tablet] 2 tab PO BID 02/05/16 [ History] Docusate [Colace] 100 mg PO TID 02/05/16 [History] Haloperidol 20 mg PO TID 02/05/16 [History] Haloperidol Decanoate [Haldol] 50 mg IM QMONTH 02/05/16 [History] Ipratropium/Albuterol Neb [Duoneb] 3 ml IH Q6HR 02/05/16 [History] Latanoprost [Xalatan] 1 drop RIGHT EYE HS 02/05/16 [History] Magnesium Hydroxide [Milk of Magnesia] 60 ml PO DAILY PRN 02/05/16 [History] Metoprolol XL (24 HR) Succ [Toprol Xl] 50 mg PO BID 02/05/16 [History] Omeprazole [PriLOSEC] 20 mg PO BIDAC 02/05/16 [History] Sertraline [Zoloft] 150 mg PO DAILY 02/05/16 [History] TraZODone 50 mg PO HS 02/05/16 [History] amLODIPine [Norvasc] 5 mg PO DAILY 02/05/16 [History] Ipratropium/Albuterol Sulfate [Combivent Respimat Inhal [place]] 1 puff IH Q6H PRN 04/23/16 [History] Cholecalciferol (D-3) [Vitamin D] 1,000 unit PO DAILY 03/06/17 [History] Divalproex (24 HR) [Depakote ER (24 HR)] 750 mg PO HS 03/06/17 [History] Finasteride [Proscar] 5 mg PO HS 03/06/17 [History] Tamsulosin [Flomax] 0.8 mg PO DAILY 03/06/17 [History] Docusate [Colace] 100 mg PO BID PRN capsule 03/11/17 [Rx] Ferrous Sulfate [Iron] 325 mg PO BID #60 tablet 03/11/17 [Rx] Haloperidol Lactate [Haldol] 5 mg IVP Q6H PRN vial 03/11/17 [Rx] Allergies/Adverse Reactions: 3 Allergy/AdvReac Type Severity Reaction Status Date / Time No Known Allergies Allergy Verified 05/02/16 12:49 - Respiratory Orders Smoking Cessation: Smoking cessation has been advised. For more information, call the [place] Tobacco Quit Line at 7-470-VBNQ-NOW. - Lab Orders Lab Orders: Other (include drug levels w/frequency) (BMP in 3 days. Further BMP check up to PCP/ provider taking over.) - Ancillary Orders May use pressure relief devices daily prn, May consult with Dentist, Flatwork Washer, Procurement Cost Coordinator PRN - Mobility Orders Ambulate - Rehabiliation Orders Rehab Potential: Good Rehab Orders: Evaluation for Physical Therapy, Evaluation for Occupational Therapy - Treatments Skin tear care topically daily PRN per policy - Diet Orders Regular CERTIFICATION: I certify that the transfer of the above named patient to an Extended Care Facility is necessary for the continuing treatment of the diagnosis listed. The above information is true and accurate reflection of patient's current condition. Confidential - Redisclosure prohibited without a patient's written consent.
== END 2017-03-11 13:55 ==
LOC: 3BNU 16:53 → EMEROO 16:53 → SUATTDRO 22:52 → 3BNU 03-06 00:17
PROVIDERS: ADMIT Pediatrics; ATTEND Internal Medicine